=== PATIENT | female | born 1950 | race Caucasian/White ===

== ENCOUNTER 2021-12-11 08:22 | Outpatient (CLI) | payer MEDICARE, BC, SELFPAY | END 2021-12-11 08:23 | disposition home or self-care (01) | LOC: INJ CL 08:23 | PROVIDERS: PCP Internal Medicine; Visit Provider Family Medicine | DX: M54.16 Radiculopathy, lumbar region (principal); M51.36 Other intervertebral disc degeneration, lumbar region | CPT/HCPCS: 62323; J0702; Q9966 ==

== ENCOUNTER 2022-02-01 09:28 | Outpatient (CLI) | payer MEDICARE, BC, SELFPAY ==
[2022-02-01 12:46] LABS: TSH With Reflex to FT4* 0.387 uIU/mL (0.270-4.200)
[2022-02-01 12:54] LABS: Albumin* 4.2 g/dL (3.3-5.0); Chloride* 102 mmol/L (96-114)
[2022-02-01 12:55] LABS: Potassium* 4.5 mmol/L (3.6-5.1); Sodium* 136 mmol/L (135-149)
[2022-02-01 12:57] LABS: Aspartate Amino Transferase* 40 U/L (12-35); Bilirubin Total* 0.5 mg/dL (0.1-1.5); Blood Urea Nitrogen* 20 mg/dL (7-30); Carbon Dioxide* 28 mmol/L (20-32); Cholesterol* 155 mg/dL (90-199); Creatinine* 0.7 mg/dL (0.5-1.5); Estimated Glomerular Filt Rate 93 ml/min; Glucose* 99 mg/dL (60-115); Total Protein* 6.7 g/dL (6.0-8.3)
[2022-02-01 12:58] LABS: Alanine Aminotransferase* 27 U/L (4-35); Alkaline Phosphatase* 89 U/L (40-150); Calcium* 9.3 mg/dL (8.4-10.6); HDL Cholesterol* 78 mg/dL (>=50); LDL Cholesterol Calculated 65 mg/dL (<100); Triglycerides* 57 mg/dL (40-149)
== END 2022-02-01 09:29 | disposition home or self-care (01) ==
LOC: NFLDREF 09:28
PROVIDERS: PCP Internal Medicine; Visit Provider Internal Medicine
DX: E03.9 Hypothyroidism, unspecified (principal); E78.5 Hyperlipidemia, unspecified; M32.9 Systemic lupus erythematosus, unspecified
CPT/HCPCS: 80053; 80061; 84443

== ENCOUNTER 2022-07-16 09:26 | Outpatient (CLI) | payer MEDICARE, BC, SELFPAY | END 2022-07-16 09:27 | disposition home or self-care (01) | LOC: INJ CL 09:27 | PROVIDERS: PCP Internal Medicine; Visit Provider Family Medicine | DX: M54.16 Radiculopathy, lumbar region (principal); M51.36 Other intervertebral disc degeneration, lumbar region | CPT/HCPCS: 62323; J0702 ==

== ENCOUNTER 2022-07-25 17:45 | Outpatient (CLI) | payer MEDICARE, BC, SELFPAY | END 2022-07-25 17:46 | disposition home or self-care (01) | LOC: NFLDREF 07-29 03:44 | PROVIDERS: PCP Internal Medicine; Referring Provider Internal Medicine; Visit Provider Student in an Organized Health Care Education/Training Program | DX: R30.0 Dysuria (principal); N39.0 Urinary tract infection, site not specified | CPT/HCPCS: 87086; 87186 ==

== ENCOUNTER 2022-10-08 15:32 | Outpatient (CLI) | payer MEDICARE, BC, SELFPAY ==
--- NOTE | 2022-10-08 15:40 | CRLHL7_ITS ---
For Patients: As a result of the Cures Act, medical imaging exams and procedure reports are released immediately into your electronic medical record. You may view this report before your referring provider. If you have questions, please contact your health care provider. BILATERAL SCREENING MAMMOGRAM WITH COMPUTER-AIDED DETECTION AND TOMOSYNTHESIS TECHNIQUE: CC and MLO views were obtained. These mammographic images have been obtained using full-field digital technique. These mammographic images were interpreted with the benefit of computer-aided detection. Breast tomosynthesis was used in this interpretation. COMPARISON FILM: 08/31/21, 07/28/20, 07/03/18. FINDINGS: The breasts are heterogeneously dense, which may obscure small masses. IMPRESSION: There is no radiographic evidence for malignancy. ASSESSMENT: BI-RADS Category 1: Negative RECOMMENDATION: Routine screening mammogram in 1 year. A lay language report of this examination will be provided to the patient. JAVIER MATTA M.D. Diagnostic/Nuclear Medicine Radiologist [email or web address] MATILDA:[email or web address] Transcribed: 10/09/2022, 6:[address]/Dictated by: Javier Matta MD @ 10/09/2022 8:41:00 AM (Electronically Signed)
== END 2022-10-08 15:33 | disposition home or self-care (01) ==
LOC: MAMMO 15:33
PROVIDERS: PCP Internal Medicine; Visit Provider Internal Medicine
DX: Z12.31 Encounter for screening mammogram for malignant neoplasm of breast (principal); R92.2 Inconclusive mammogram
CPT/HCPCS: 77063; 77067

== ENCOUNTER 2023-02-17 09:31 | Outpatient (CLI) | payer MEDICARE, BC, SELFPAY | END 2023-02-17 09:32 | disposition home or self-care (01) | PROVIDERS: PCP Internal Medicine; Referring Provider Internal Medicine; Visit Provider Internal Medicine | DX: E03.9 Hypothyroidism, unspecified (principal); E78.5 Hyperlipidemia, unspecified | CPT/HCPCS: 80053; 80061; 84443 ==

== ENCOUNTER 2023-09-12 09:29 | Outpatient (CLI) | payer MEDICARE, BC, SELFPAY ==
--- OUTSIDE RECORDS SUMMARY | 2023-09-12 09:31 | XMS_ITS | Encounter Summary ---
Author Organization [facility] Address [address] [facility] [address] Care Team Providers Care Lobby Porter Name Role Phone [facility] Unavaila ble No Ref-Primary, Physician Primary Care Provider Ronaldo Trotter MD Unavailable [phone] Niesha Negron DO Unavailable [phone] Encounter Details Date Type Department Care Team (Late st Contact Info) Description 09/28/2018 [facility] Medical Advice [address] [phone] Margie Chery High risk HPV infection Social History Tobacco Use Types Packs/Day Years Used Date Smoking Tobacco: Never Smokeless Tobacco: Never Alcohol Use Standard Drinks/Week Comments Yes 0 (1 standard drink = 0.6 oz pur e alcohol) socially wine PHQ-2 Answer Date Recorded PHQ-2 Score 0 03/31/2018 Sex and Gender Information Value Date Recorded Sex Assigned at Not on file Gender Identity Not on file Sexual Orientation Not on file documented as of this encounter Plan of Treatment Upcoming Encounters Date Type Department Care Team (Late st Contact Info) Description 09/22/2023 10:30 AM CDT Office Visit [facility] [address] [place] [phone] Neisha Negron DO [address] [place] [address] documented as of this encounter Visit Diagnoses Diagnosis High risk HPV infection Human papillomavirus in conditions classified elsewhere and of unspecified site documented in this encounter Care Teams Lobby Porter Relationship Specialty Start Date End Date No Ref-Primary, Physician PCP - General 07/28/[address] [address] PCP 08/09/16 Ronaldo Trotter MD [address] [place] [address] Assigned Rheumatology Provider 01/14/20 10/28/20 [place] [address] [place], [place] [id number] Assigned OBGYN Provider 01/14/20 documented as of this encounter
--- OUTSIDE RECORDS SUMMARY | 2023-09-12 09:31 | XMS_ITS | Encounter Summary ---
Author Organization [facility] Address [address] [place] [address]. [place] [address] Care Team Providers Care Exhaust Equipment Operator Name Role Phone Shaniqua Nguyễn MD Primary Care Provider [phone] [facility] Unavaila ble [facility] Primary Care Provider No Ref-Primary, Physician Primary Care Provider Ronaldo Trotter MD Unavailable [phone] Niesha Negron DO Unavailable [phone] Reason for Visit * Reason Onset Date Comments Abstract 07/13/2016 Mammogram Encounter Details Date Type Department Care Team (Late st Contact Info) Description 07/13/2016 Telephone [facility] [address] [place] [phone] [place]iqua Nguy[place] [address] [place] [address] Abstract (Mammogram) Social History Tobacco Use Types Packs/Day Years Used Date Smoking Tobacco: Never Smokeless Tobacco: Never Alcohol Use Standard Drinks/Week Comments Yes 0 (1 standard drink = 0.6 oz pur e alcohol) socially wine Sex and Gender Information Value Date Recorded Sex Assigned at Not on file Gender Identity Not on file Sexual Orientation Not on file documented as of this encounter Miscellaneous Notes * Telephone Encounter - Sylvia Teran - 07/13/2016 3:29 PM CDT Please abstract the following data from this visit with this patient into the appropriate field in Epic: Colonoscopy done on this date: 01/2016 (approximately), by this group: [facility], resultswere normal. Outreach Electron Tube Assembler, Sylvia Teran documented in this encounter Plan of Treatment Upcoming Encounters Date Type Department Care Team (Late st Contact Info) Description 09/22/2023 10:30 AM CDT Office Visit [facility] [address] [place] [phone] Niesha Negron DO [address] [place] [address] documented as of this encounter Visit Diagnoses Not on filedocumented in this encounter Care Teams Exhaust Equipment Operator Relationship Specialty Start Date End Date Shaniqua Nguy[place] [address] [place] [address] PCP - General Internal Medicine 06/10/14 02/26/17 [facility] [address] [place] [address] PCP - General 02/27/17 07/27/17 No Ref-Primary, Physician PCP - General 07/28/17 [facility] [address] [place] [address] PCP 08/09/16 Ronaldo Trotter MD [address] [place] [address] Assigned Rheumatology Provider 01/14/20 10/28/20 [place] [address] [place] [address] Assigned OBGYN Provider 01/14/20 documented as of this encounter
--- OUTSIDE RECORDS SUMMARY | 2023-09-12 09:31 | XMS_ITS | Encounter Summary ---
Author Organization [facility] Address [address] [place] [address] Care Team Providers Care Regional Safety Manager Name Role Phone [facility], [facility] Medical Unavaila ble No Ref-Primary, Physician Primary Care Provider Ronaldo Trotter MD Unavailable [phone] Niesha Negron Elle DO Unavailable [phone] Encounter Details Date Type Department Care Team (Late st Contact Info) Description 04/17/2019 [facility] [address] [phone] Ronaldo Trotter MD [address] [place] [address] Social History Tobacco Use Types Packs/Day Years [...] encounter Miscellaneous Notes * Telephone Encounter - Ronaldo Trotter MD - 04/21/2019 9:19 AM CST She is not on any medications requiring lab monitoring and it has been a long time since I have seen her so let us wait until after we review her situation and decide if she needs any specific labs. TERY WORKERS SUPERVISOR documented in this encounter Plan of Treatment Upcoming Encounters Date Type Department Care Team (Late st Contact Info) Description 09/22/2023 10:30 AM CDT Office Visit [facility] [address] [place] [phone] Niesha Negron DO [address] [place] [address] documented as of this encounter Visit Diagnoses Not on filedocumented in this encounter Care Teams Regional Safety Manager Relationship Specialty Start Date End Date No Ref-Primary, Physician PCP - General 07/28/17 [facility], [address] [address] PCP 08/09/16 Ronaldo Trotter MD [address] [place] [address] Assigned Rheumatology Provider 01/14/20 10/28/20 [place] [address] [place] [address] Assigned OBGYN Provider 01/14/20 documented as of this encounter
--- OUTSIDE RECORDS SUMMARY | 2023-09-12 09:31 | XMS_ITS | Referral Summary ---
Author Organization [facility] Address [address] [place] [address] Care Team Providers Care Tool Maintenance Technician Name Role Phone [facility], [facility] Unavaila ble No Ref-Primary, Physician Primary Care Provider Allergies Active Allergy Reactions Criticality Noted Date Comments Erythromycin Nausea and Vomiting 03/12/2012 Contrast Dye Shortness Of Breath High 03/12/2012 Procaine Anxiety,Palpitations ,Difficulty breathing Low 07/05/2014 Sulfa Antibiotics Swelling 03/12/2012 Medications Medication Sig Dispensed Refills Start Date End Date Status Multiple Vitamins-Minerals (MULTI VITAMIN/MINERALS PO)Indications:Chest tightness,Fatigue,Con nective tissue disease (H24) Take 1 tablet by mouth daily. Active [place]-3 Fatty Acids (OMEGA-3 FISH OIL PO)Indications:Chest tightness,Fatigue,Con nective tissue disease (H24) Take 1 tablet by mouth daily 1200 daily Active IBUPROFENIndications: Chest tightness,Fatigue,Con nective tissue disease (H24) 1-2 tablets as needed Active cyclobenzaprine (FLEXERIL) 10 MG tabletIndications:Yesenia st tightness,Fatigue,Con nective tissue disease (H24) Take 0.5 tablets by mouth 3 times daily as needed. Active Naproxen Sodium (ALEVE PO) Take by mouth At Bedtime Active levothyroxine (SYNTHROID) 100 MCG tabletIndications:Hyp othyroidism, unspecified hypothyroidism type Take 1 tablet (100 mcg) by mouth daily Pt needs a lab done now. Please inform the pt 30 tablet 0 01/31/2015 Active diclofenac (VOLTAREN) 1 % GEL topical gelIndications:Connec tive tissue disease (H24),Osteoarthritis of carpometacarpal (CMC) joint of both thumbs Apply 4 grams to knees or 2 grams to hands four times daily using enclosed dosing card. 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 Co-test 12 months 12/25/15: NIL pap, + HR HPV 16. Plan [place]. 04/03/16: BX: normal, ECC: Neg. Plan cotest in 1 year per provider. 05/15/17 NIL pap, + HR HPV type 16. Plan colp due by 08/12/17 06/30/17 [place]- DEB 1 and high grade lesion on ECC. Plan LEEP 09/18/17 LEEP - DEB 1 and 2. Plan repeat pap at 6 and 12 months. 04/13/18: NIL pap, Neg HR HPV result. Plan repeat pap in 6 months. 12/28/18 NIL Pap, Neg HPV. Plan cotest in 1 year. 03/06/20 NIL, Neg HPV. Plan 1 yr co-test 03/05/21 NIL pap, Neg HPV. Plan cotest in 3 years. *After excision or ablation for DEB 2+, patient needs a cotest in 6 months, then cotesting annually X 3, then a cotest every 3 years for at least 25 years.* (2019 ASCCP guideline). Allergic rhinitis due to pollen 11/04/2013 Raynaud's syndrome 04/27/2013 Sicca syndrome (H24) 05/19/2012 Sinusitis 05/19/2012 Immunizations Name Administration Dates Next Due Flu, Unspecified 12/20/2008,01/29/2008 Influenza (H1N1) 02/20/2009 Influenza (High Dose) 3 emilia nt vaccine 02/12/2017 Influenza (IIV3) PF 12/24/2012, 3,12/23/2011,2010,01/07/2010 Pneumo Conj 13-V (2010&after) 03/05/2018 TDAP Vaccine (Adacel) 06/06/2014 Zoster vaccine, live 08/18/2011 Social History Tobacco Use Types Packs/Day Years Used Date Smoking Tobacco: Never Smokeless Tobacco: Never Alcohol Use Standard Drinks/Week Comments Yes 0 (1 standard drink = 0.6 oz pur e alcohol) socially wine PHQ-2 Answer Date Recorded PHQ-2 Score 0 03/06/2020 Adolescent Education Answer Date Record ed Getting School Help Needed Not on file 12/15 Sex and Gender Information Value Date Recorded Sex Assigned at Not on file Gender Identity Not on file Sexual Orientation Not on file Last Filed Vital Signs Vital Sign Reading Time Taken Comments Blood Pressure 130/82 03/05/2021 3:17 PM RN RELIEF CHARGE Pulse 80 04/29/2019 8:26 AM RN RELIEF CHARGE Temperature 36.8 ??C (98.2 ??F) 01/20/2018 2:57 PM CD T Respiratory Rate 17 04/29/2019 8:26 AM RN RELIEF CHARGE Oxygen Saturation 99% 04/29/2019 8:26 AM RN RELIEF CHARGE RA Inhaled Oxygen Concentration - - Weight 57.4 kg (126 lb 8 oz) 03/05/2021 3:17 PM RN RELIEF CHARGE Height 160 cm (5' 3) 03/05/2021 3:17 PM RN RELIEF CHARGE Body Mass Index 22.41 03/05/2021 3:17 PM RN RELIEF CHARGE Plan of Treatment Upcoming Encounters Date Type Department Care Team (Late st Contact Info) Description 09/22/2023 10:30 AM CDT Office Visit [facility] [place] [address] [place] [address] Niesha Negron, DO [address] [facility] [address] [place] [address] Procedures Procedure Name Priority Date/Time Associated Diagnosis Comments HPV HIGH RISK TYPES DNA CERVICAL Routine 03/05/2021 4:10 PM RN RELIEF CHARGE Cervical high risk HPV (human papillomavirus) test positive Moderate dysplasia of cervix (DEB II) Encounter for gynecological examination (general) (routine) without abnormal findings GYNECOLOGIC CYTOLOGY Routine 03/05/2021 4:10 PM RN RELIEF CHARGE Cervical high risk HPV (human papillomavirus) test positive Moderate dysplasia of cervix (DEB II) Encounter for gynecological examination (general) (routine) without abnormal findings TSH Routine 02/23/2017 2:17 PM RN RELIEF CHARGE Acute sinusitis with symptoms > 10 days Fatigue, unspecified type COMPREHENSIVE METABOLIC PANEL Routine 03/01/2016 10:19 AM RN RELIEF CHARGE Routine general medical examination at a health care facility LIPID REFLEX TO DIRECT LDL PANEL Routine 03/01/2016 10:19 AM RN RELIEF CHARGE Routine general medical examination at a health care facility COLONOSCOPY Routine 07/08/2014 10:44 AM CDT MAMMOGRAM - HIM SCAN 10/08/2013 12:00 AM CDT from Last 3 Months or Most Recently Relevant to Health Maintenance Results * Pap diagnostic with HPV (03/05/2021 4:10 PM RN RELIEF CHARGE) Interpretation Negative for Intraepithelial Lesion or Malignancy (NILM) 03/12/2021 10:37 AM RN RELIEF CHARGE [facility] Comment Papanicolaou Test Limitations: Cervical cytology is a screening test with limited sensitivity, and regular screening is critical for cancer prevention. Pap tests are primarily effective for the diagnosis/prevent ion of squamous cell carcinoma, not adenocarcinoma or other cancers. 03/12/2021 10:37 AM RN RELIEF CHARGE [facility] Specimen Adequacy Satisfactory for evaluation, endocerv/transfor mation zone component absent, atrophy 03/12/2021 10:37 AM RN RELIEF CHARGE [facility] Clinical Information post-menopausal 03/12/2021 10:37 AM RN RELIEF CHARGE [facility] Reflex Testing Yes regardless of result 03/12/2021 10:37 AM RN RELIEF CHARGE [facility] Previous Abnormal? Yes 03/12/2021 10:37 AM RN RELIEF CHARGE [facility] Previous Abnormal Diagnosis DEB 1 and HPV 03/12/2021 10:37 AM RN RELIEF CHARGE [facility] Performing Labs The technical component of this testing was completed at [facility] 03/12/2021 10:37 AM RN RELIEF CHARGE [facility] Brushing CERVIX UTERI STRUCTURE / Unknown 03/05/2021 4:10 PM RN RELIEF CHARGE 03/05/2021 4:15 PM RN RELIEF CHARGE Niesha Negron DO LAB - [facility] [address] [place] [address], [facility] [phone] * HPV High Risk Types DNA Cervical (03/05/2021 4:10 PM RN RELIEF CHARGE) Other HR HPV Negative Negative 03/13/2021 3:14 PM RN RELIEF CHARGE [facility] HPV16 DNA Negative Negative 03/13/2021 3:14 PM RN RELIEF CHARGE [facility] HPV18 DNA Negative Negative 03/13/2021 3:14 PM RN RELIEF CHARGE [facility] FINAL DIAGNOSIS This patient's sample is negative for HPV DNA. This test was developed and its performance characteristics determined by the [facility], [facility]. It has not been cleared or approved by the FDA. The laboratory is regulated under CLIA as qualified to perform high-complexity testing. This test is used for clinical purposes. It should not be regarded as investigational or for research. METHODOLOGY: The Marco [employer] Belen 4800 system uses automated extraction, simultaneous amplification of HPV (L1 region) and beta-globin, followed by real time detection of fluorescent labeled HPV and beta globin using specific oligonucleotide probes. The test specifically identified types HPV 16 DNA and HPV 18 DNA while concurrently detecting the rest of the high risk types (31, 33, 35, 39, 45, 51, 52, 56, 58, 59, 66 or 68). COMMENTS: This test is not intended for use as a screening device for woman under age 30 with normal cervical cytology. Results should be correlated with cytologic and histologic findings. Close clinical followup is recommended. 03/13/2021 3:14 PM RN RELIEF CHARGE [facility] Brushing CERVIX UTERI STRUCTURE / Unknown Non-blood Collection / Unknown 03/05/2021 4:10 PM RN RELIEF CHARGE 03/13/2021 8:35 AM RN RELIEF CHARGE Niesha Negron DO LAB - BLOOD ORDER SNOW [facility] [address] [facility] [place] [address], [facility] [phone] * (ABNORMAL) TSH (02/23/2017 2:17 PM RN RELIEF CHARGE) TSH 0.38(L) 0.40 - 4.00 mU/L 02/24/2017 3:21 PM RN RELIEF CHARGE [facility] Blood specimen (specimen) 02/23/2017 2:17 PM RN RELIEF CHARGE 02/23/2017 2:18 PM RN RELIEF CHARGE Angel Ordaz MD LAB - BLOOD ORDERABL ES Performing Organization Address City/[facility]/ZIP Co de Phone Number [facility] [address] [place] [address] * (ABNORMAL) Lipid Profile with reflex to direct LDL (03/01/2016 10:19 AM RN RELIEF CHARGE) Cholesterol 195 <200 mg/dL [facility] Triglycerides 62 <150 mg/dL [facility] HDL Cholesterol 78 >49 mg/dL [facility] LDL Cholesterol Calculated 105(H) <100 mg/dL [facility] Comment: Above desirable: ??100-129 mg/dl Borderline High: ??130-159 mg/dL High: ? 160-189 mg/dL Very high: ? >189 mg/dl Non HDL Cholesterol 117 <130 mg/dL [facility] Blood specimen (specimen) 03/01/2016 10:19 AM RN RELIEF CHARGE 03/01/2016 10:24 AM RN RELIEF CHARGE Niesha Negron DO LAB - BLOOD ORDER SNOW [facility] [address] [place] [address] * (ABNORMAL) Comprehensive metabolic panel (BMP + Alb, Alk Phos, ALT, AST, Total. Bili, TP) (03/01/2016 10:19 AM RN RELIEF CHARGE) Sodium 143 133 - 144 mmol/L [facility] Potassium 4.2 3.4 - 5.3 mmol/L [facility] Chloride 108 94 - 109 mmol/L [facility] Carbon Dioxide 26 20 - 32 mmol/L [facility] Anion Gap 9 3 - 14 mmol/L [facility] Glucose 100(H) 70 - 99 mg/dL [facility] Urea Nitrogen 17 7 - 30 mg/dL [facility] Creatinine 0.74 0.52 - 1.04 mg/dL [facility] GFR Estimate 79 >60 mL/min/1. 7m2 [facility] Comment:Non GFR Calc GFR Estimate If Black >90 GFR Calc >60 mL/min/1. 7m2 [facility] Calcium 9.1 8.5 - 10.1 mg/dL [facility] Bilirubin Total 0.4 0.2 - 1.3 mg/dL [facility] Albumin 3.8 3.4 - 5.0 g/dL [facility] Protein Total 7.1 6.8 - 8.8 g/dL [facility] Alkaline Phosphatase 72 40 - 150 U/L [facility] ALT 27 0 - 50 U/L [facility] AST 26 0 - 45 U/L [facility] Blood specimen (specimen) 03/01/2016 10:19 AM RN RELIEF CHARGE 03/01/2016 10:24 AM RN RELIEF CHARGE Niesha Negron DO LAB - BLOOD ORDER SNOW [facility] [address] [place] [address] * COLONOSCOPY (07/08/2014 10:44 AM CDT) COLONOSCOPY [facility] Patient Name: Yessy Mullen ?Procedure Date: 07/08/2014 10:44 AM ? Date of : 1950 ? Admit Type: Outpatient Age: 64 ? Gender: Female Attending MD: Deonte High MD ?Instrument Name: [id number] Procedure: ?Colonoscopy Indications: ?Screening for colorectal malignant neoplasm Providers: ?Deonte High MD, Sola Lopez RN (Nurse) Referring MD: ? Shaniqua Nguyễn MD Medicines: ?Midazolam 2 mg IV, Fentanyl 100 micrograms IV Complications: ?No immediate complications. Procedure: ?Pre-Anesthesia Assessment: ?- Prior to the procedure, a History and Physical ?was performed, and patient medications and ?allergies were reviewed. The patient is competent. ?The risks and benefits of the procedure and the ?sedation options and risks were discussed with the ?patient. All questions were answered and informed ?consent was obtained. Patient identification and ?proposed procedure were verified by the physician ?in the procedure room. Mental Status Examination: ?alert and oriented. Airway Examination: normal ?oropharyngeal airway and neck mobility. Respiratory ?Examination: clear to auscultation. CV Examination: ?normal. Prophylactic Antibiotics: The patient does ?not require prophylactic antibiotics. Prior ?Anticoagulants: The patient has taken no previous ?anticoagulant or antiplatelet agents. ASA Grade ?Assessment: II - A patient with mild systemic ?disease. After reviewing the risks and benefits, ?the patient was deemed in satisfactory condition to ?undergo the procedure. The anesthesia plan was to ?use moderate sedation / analgesia (conscious ?sedation). Immediately prior to administration of ?medications, the patient was re-assessed for ?adequacy to receive sedatives. The heart rate, ?respiratory rate, oxygen saturations, blood ?pressure, adequacy of pulmonary ventilation, and ?response to care were monitored throughout the ?procedure. The physical status of the patient was ?re-assessed after the procedure. ?After obtaining informed consent, the colonoscope ?was passed under direct vision. Throughout the ?procedure, the patient's blood pressure, pulse, and ?oxygen saturations were monitored continuously. The ?[id number] was introduced through the anus ?and advanced to the cecum, identified by ?appendiceal orifice and ileocecal valve. The ?colonoscopy was performed without difficulty. The ?patient tolerated the procedure well. The quality ?of the bowel preparation was good. ? Findings: ? The perianal and digital rectal examinations were normal. ? The entire examined colon appeared normal on direct and retroflexion ? views. ? Impression: ? - The entire examined colon is normal on direct and ?retroflexion views. Recommendation: ? - Repeat colonoscopy in 10 years for screening ?purposes. ? Procedure Code(s): ? --- Professional --- ? G0121, Colorectal cancer screening; colonoscopy on individual not ? meeting criteria for high risk Diagnosis Code(s): ? --- Professional --- ? V76.51, Special screening for malignant neoplasms of colon CPT copyright 2013 [employer]. All rights reserved. The codes documented in this report are preliminary and upon hand woven carpet and rug mender review may be revised to meet current compliance requirements. Electronically signed by Deonte High MD __ Deonte High MD 07/08/2014 11:11 AM I was physically present for the entire viewing portion of the exam. Number of Addenda: 0 Note Initiated On: 07/08/2014 10:44 AM MRN: ?[id number] Procedure Date: ? 07/08/2014 10:44:48 AM Scope Withdrawal Time: 0 hours 6 minutes 43 seconds Total Procedure Duration: 0 hours 13 minutes 14 seconds Scope In: 10:50:12 AM Scope Out: 11:03:26 AM RADIOLOGY RESULTS 07/08/2014 10:4 4 AM CDT Shaniqua Nguyễn MD PROCEDURES RADIOLOGY RESULTS * MAMMOGRAM - HIM SCAN (10/08/2013 12:00 AM CDT) Anatomical Region Laterality Modality Other 10/08/2013 Provider Outside IMG MAMMOGRAPHY ORDE RABASNUCION from Last 3 Months or Most Recently Relevant to Health Maintenance Care Teams Tool Maintenance Technician Relationship Specialty Start Date End Date No Ref-Primary, Physician PCP - General 07/28/17 [facility], [address] [address] PCP 08/09/16
--- OUTSIDE RECORDS SUMMARY | 2023-09-12 09:31 | XMS_ITS | Encounter Summary ---
Author Organization [facility] Address [address] [place] [address] Care Team Providers Care Chef Manager Name Role Phone [facility], [facility], [facility] Primary Care Provider No Ref-Primary, Physician Primary Care Provider Ronaldo Trotter MD Unavailable [phone] Niesha Negron DO Unavailable [phone] Encounter Details Date Type Department Care Team (Late st Contact Info) Description 03/24/2017 [facility] Medical Advice [address] [address] [facility] Social History Tobacco Use Types Packs/Day Years [...] Description 09/22/2023 10:30 AM CDT Office Visit [facility] [address] [place] [phone] Niesha Negron DO [address] [place] [address] documented as of this encounter Visit Diagnoses Not on filedocumented in this encounter Care Teams Chef Manager Relationship Specialty Start Date End Date [address] [address] PCP - General 02/27/17 07/27/17 No Ref-Primary, Physician PCP - General 07/28/17 [facility], [facility] [address] [place] [address] PCP 08/09/16 Ronaldo Trotter MD [address] [place] [address] Assigned Rheumatology Provider 01/14/20 10/28/20 [place] [address] [place] [address] Assigned OBGYN Provider 01/14/20 documented as of this encounter
--- OUTSIDE RECORDS SUMMARY | 2023-09-12 09:31 | XMS_ITS | Encounter Summary ---
Author Organization [facility] Address [address] [place] [address] Care Team Providers Care Storm Sash Maker Name Role Phone Shaniqua Nguyễn MD Primary Care Provider [phone] [facility], [facility], [facility] Primary Care Provider No Ref-Primary, Physician Primary Care Provider Ronaldo Trotter MD Unavailable [phone] Niesha Negron DO Unavailable [phone] Encounter Details Date Type Department Care Team (Late Contact Info) Description 04/08/2016 [facility] [address] [address] Bonita Case, PRINTING PRESS OPERATOR APPRENTICE DIRECTOR [employer] [address] [place] [address] [address] [place] [address] Social History Tobacco Use Types Packs/Day Years [...] Description 09/22/2023 10:30 AM CDT Office Visit [facility] [address] [place] [address] Niesha Negron DO [address] [place] [address] documented as of this encounter Visit Diagnoses Not on filedocumented in this encounter Care Teams Storm Sash Maker Relationship Specialty Start Date End Date Shaniqua Nguy[place] [address] [facility] [address] PCP - General Internal Medicine 06/10/14 02/26/[address] [address] PCP - General 02/27/17 07/27/17 No Ref-Primary, Physician PCP - General 07/28/17 [facility] [address] [place] [address] PCP 08/09/16 Ronaldo Trotter MD [address] [place] [address] Assigned Rheumatology Provider 01/14/20 10/28/20 [place] [address] [place] [address] Assigned OBGYN Provider 01/14/20 documented as of this encounter
--- OUTSIDE RECORDS SUMMARY | 2023-09-12 09:31 | XMS_ITS | Clinical Summary ---
Author Organization [place] Address [address] [place] [address] Care Team Providers Care Tire Balancer Name Role Phone [facility], [facility] Unavaila ble No Ref-Primary, Physician Primary Care [...] Take 1 tablet by mouth daily. Active [place]-3 Fatty Acids (OMEGA-3 FISH OIL PO)Indications:Chest tightness,Fatigue,Con [...] Overview: 06/06/14 NIL pap, +HPV 16 08/11/14 [place]= DEB 1 Pap= NIL. Co-test 12 months 12/25/15: NIL pap, + HR HPV 16. Plan [place]. 04/03/16: BX: normal, ECC: Neg. Plan cotest in 1 year per provider. 05/15/17 NIL pap, + HR HPV type 16. Plan colp due by 08/12/17 06/30/17 [place]- DEB 1 and high grade lesion on [...] Vaccine (Adacel) 06/06/2014 Zoster vaccine, live 08/18/2011 Family History Medical History Relation Comments Diabetes Maternal Uncle 1 Diabetes Maternal Uncle 2 Hypertension Maternal Uncle 3 Hyperlipidemia Maternal Uncle 4 Relation Status Comments Maternal Uncle 1 Maternal Uncle 2 Maternal Uncle 3 Maternal Uncle 4 Social History Tobacco Use Types Packs/Day Years [...] Comments Blood Pressure 130/82 03/05/2021 3:17 PM NEEDLEWORKER Pulse 80 04/29/2019 8:26 AM NEEDLEWORKER Temperature 36.8 ??C (98.2 ??F) 01/20/2018 2:57 PM CD T Respiratory Rate 17 04/29/2019 8:26 AM NEEDLEWORKER Oxygen Saturation 99% 04/29/2019 8:26 AM NEEDLEWORKER RA Inhaled Oxygen Concentration - - Weight 57.4 kg (126 lb 8 oz) 03/05/2021 3:17 PM NEEDLEWORKER Height 160 cm (5' 3) 03/05/2021 3:17 PM NEEDLEWORKER Body Mass Index 22.41 03/05/2021 3:17 PM NEEDLEWORKER Plan of Treatment Upcoming Encounters Date Type Department Care Team (Late st Contact Info) Description 09/22/2023 10:30 AM CDT Office Visit [facility] [address] [place] [phone] Niesha Negron, DO [address] [place] [address] Health Maintenance Due Date Last Done Comments ADVANCE CARE PLANNING 1950 ANNUAL REVIEW OF HM ORDERS [address] CT COLONOGRAPHY 1950 DEXA 1950 FIT 1950 FLEX SIG 1950 sDNA (Cologuard) 1950 HEPATITIS C SCREENING 1969 RSV VACCINE ( & 60+) (1 - 1-dose 60+ series) 2011 MAMMO SCREENING 10/09/2015 10/08/2013, 08/28/2012 FALL RISK ASSESSMENT 02/15/2016 LIPID 03/01/2017 03/01/2016, 06/06/2014 EYE EXAM 12/28/2017 12/28/2016, 11/22, 06/11/2012 TSH W/FREE T4 REFLEX 02/23/2018 02/23/2017, 08/11/2016, 03/01/2016, Additional history exists GLUCOSE 03/01/2019 03/01/2016, 06/06/2014 MEDICARE ANNUAL WELLNESS VISIT 03/05/2022 03/05/2021, 03/06/2020, 12/25/2015, Additional history exists COVID-19 Vaccine ( season) 2022 04/05/2022, 02/20/2021, 05/18/2020, Additional history exists PHQ-2 (once per calendar year) 2023 03/06/2020, 04/29/2019, 04/29/2019, Additional history exists HPV FOLLOW-UP 03/05/2024 03/05/2021, 02/21, 12/28/2018, Additional history exists PAP FOLLOW-UP 03/05/2024 03/05/2021, 02/21, 12/28/2018, Additional history exists COLONOSCOPY 07/08/2024 07/08/2014, 07/08/2014 COLORECTAL CANCER SCREENING 07/08/2024 DTAP/TDAP/TD IMMUNIZATION (3 - Td or Tdap) 09/17/2025 09/18/2015, 06/06/2014, 09/05/2004 Pneumococcal Vaccine: 65+ Years Completed 02/07/2022, 03/05/2018, 07/09/2008 INFLUENZA VACCINE Completed 12/29/2022, , 01/08/2021, Additional history exists ZOSTER IMMUNIZATION Completed 04/26/2023, 05/24/2022, 08/18/2011 HPV IMMUNIZATION Aged Out No longer e ligible based on patient's age to complete this topic IPV IMMUNIZATION Aged Out No longer e ligible based on patient's age to complete this topic MENINGITIS IMMUNIZATION Aged Out No l onger eligible based on patient's age to complete this topic RSV MONOCLONAL ANTIBODY Aged Out No l onger eligible based on patient's age to complete this topic Procedures Procedure Name Priority Date/Time Associated Diagnosis Comments HPV HIGH RISK TYPES DNA CERVICAL Routine 03/05/2021 4:10 PM NEEDLEWORKER Cervical high risk HPV (human papillomavirus) test positive Moderate dysplasia of cervix (DEB II) Encounter for gynecological examination (general) (routine) without abnormal findings GYNECOLOGIC CYTOLOGY Routine 03/05/2021 4:10 PM NEEDLEWORKER Cervical high risk HPV (human papillomavirus) test positive Moderate dysplasia of cervix (DEB II) Encounter for gynecological examination (general) (routine) without abnormal findings TSH Routine 02/23/2017 2:17 PM NEEDLEWORKER Acute sinusitis with symptoms > 10 days Fatigue, unspecified type COMPREHENSIVE METABOLIC PANEL Routine 03/01/2016 10:19 AM NEEDLEWORKER Routine general medical examination at a health care facility LIPID REFLEX TO DIRECT LDL PANEL Routine 03/01/2016 10:19 AM NEEDLEWORKER Routine general medical examination at a health care facility COLONOSCOPY Routine 07/08/2014 10:44 AM CDT MAMMOGRAM - HIM SCAN 10/08/2013 12:00 AM CDT from Last 3 Months or Most Recently Relevant to Health Maintenance Results * Pap diagnostic with HPV (03/05/2021 4:10 PM NEEDLEWORKER) Interpretation Negative for Intraepithelial Lesion or Malignancy (NILM) 03/12/2021 10:37 AM NEEDLEWORKER [facility] Comment Papanicolaou Test Limitations: Cervical cytology is a screening test with limited sensitivity, and regular screening is critical for cancer prevention. Pap tests are primarily effective for the diagnosis/prevent ion of squamous cell carcinoma, not adenocarcinoma or other cancers. 03/12/2021 10:37 AM NEEDLEWORKER [facility] Specimen Adequacy Satisfactory for evaluation, endocerv/transfor mation zone component absent, atrophy 03/12/2021 10:37 AM NEEDLEWORKER [facility] Clinical Information post-menopausal 03/12/2021 10:37 AM NEEDLEWORKER [facility] Reflex Testing Yes regardless of result 03/12/2021 10:37 AM NEEDLEWORKER [facility] Previous Abnormal? Yes 03/12/2021 10:37 AM NEEDLEWORKER [facility] Previous Abnormal Diagnosis DEB 1 and HPV 03/12/2021 10:37 AM NEEDLEWORKER [facility] Performing Labs The technical component of this testing was completed at [facility] 03/12/2021 10:37 AM NEEDLEWORKER [facility] Brushing CERVIX UTERI STRUCTURE / Unknown 03/05/2021 4:10 PM NEEDLEWORKER 03/05/2021 4:15 PM NEEDLEWORKER Niesha DELANEY - RICKEY PATEL Performing Organization Address City/State/[facility] Co de Phone Number [facility] [address] [place] [address], [facility] [phone] * HPV High Risk Types DNA Cervical (03/05/2021 4:10 PM NEEDLEWORKER) Other HR HPV Negative Negative 03/13/2021 3:14 PM NEEDLEWORKER [facility] HPV16 DNA Negative Negative 03/13/2021 3:14 PM NEEDLEWORKER [facility] HPV18 DNA Negative Negative 03/13/2021 3:14 PM NEEDLEWORKER [facility] FINAL DIAGNOSIS This patient's sample is negative for HPV DNA. This test was developed and its performance characteristics determined by the [facility], Molecular Diagnostics Laboratory. It has not been cleared or approved by the FDA. The laboratory is regulated under CLIA as qualified to perform high-complexity testing. This test is used for clinical purposes. It should not be regarded as investigational or for research. METHODOLOGY: The Marco A Belne 4800 system uses automated extraction, simultaneous amplification [...] clinical followup is recommended. 03/13/2021 3:14 PM NEEDLEWORKER [facility] Brushing CERVIX UTERI STRUCTURE / Unknown Non-blood Collection / Unknown 03/05/2021 4:10 PM NEEDLEWORKER 03/13/2021 8:35 AM NEEDLEWORKER Niesha Negron DO LAB - BLOOD ORDER SNOW [facility] Molecular Diagnostics Lab [address] [facility] [address] [place] [address], [facility] [phone] * (ABNORMAL) TSH (02/23/2017 2:17 PM NEEDLEWORKER) TSH 0.38(L) 0.40 - 4.00 mU/L 02/24/2017 3:21 PM NEEDLEWORKER [facility] Blood specimen (specimen) 02/23/2017 2:17 PM NEEDLEWORKER 02/23/2017 2:18 PM NEEDLEWORKER Angel Ordaz MD LAB - BLOOD ORDERABL ES [facility] [address] [place] [address] * (ABNORMAL) Lipid Profile with reflex to direct LDL (03/01/2016 10:19 AM NEEDLEWORKER) Cholesterol 195 <200 mg/dL [facility] Triglycerides 62 <150 mg/dL [facility] HDL Cholesterol 78 >49 mg/dL [facility] LDL Cholesterol Calculated 105(H) <100 mg/dL [facility] Comment: Above desirable: ??100-129 mg/dl Borderline High: ??130-159 mg/dL High: ? 160-189 mg/dL Very high: ? >189 mg/dl Non HDL Cholesterol 117 <130 mg/dL [facility] Blood specimen (specimen) 03/01/2016 10:19 AM NEEDLEWORKER 03/01/2016 10:24 AM NEEDLEWORKER Niesha Negron DO LAB - BLOOD ORDER SNOW Performing Organization Address City/State/[facility] Co de Phone Number [facility] [address] [place] [address] * (ABNORMAL) Comprehensive metabolic panel (BMP + Alb, Alk Phos, ALT, AST, Total. Bili, TP) (03/01/2016 10:19 AM NEEDLEWORKER) Sodium 143 133 - 144 mmol/L [facility] Potassium 4.2 3.4 - 5.3 mmol/L [facility] Chloride 108 94 - 109 mmol/L [facility] Carbon Dioxide 26 20 - 32 mmol/L [facility] Anion Gap 9 3 - 14 mmol/L [facility] Glucose 100(H) 70 - 99 mg/dL [facility] Urea Nitrogen 17 7 - 30 mg/dL [facility] Creatinine 0.74 0.52 - 1.04 mg/dL [facility] GFR Estimate 79 >60 mL/min/1. 7m2 [facility] Comment:Non GFR Calc GFR Estimate If Black >90 GFR Calc >60 mL/min/1. 7m2 [facility] Calcium 9.1 8.5 - 10.1 mg/dL [facility] Bilirubin Total 0.4 0.2 - 1.3 mg/dL [facility] Albumin 3.8 3.4 - 5.0 g/dL [facility] Protein Total 7.1 6.8 - 8.8 g/dL [facility] Alkaline Phosphatase 72 40 - 150 U/L [facility] ALT 27 0 - 50 U/L [facility] AST 26 0 - 45 U/L [facility] Blood specimen (specimen) 03/01/2016 10:19 AM NEEDLEWORKER 03/01/2016 10:24 AM NEEDLEWORKER Niesha Negron DO LAB - BLOOD ORDER SNOW [facility] [address] [place] [address] * COLONOSCOPY (07/08/2014 10:44 AM CDT) COLONOSCOPY [facility] Patient Name: Yessy Mullen ?Procedure Date: 07/08/2014 [...] and ?oxygen saturations were monitored continuously. The ?[facility]-H190L [id number] was introduced through the anus ?and advanced [...] malignant neoplasms of colon CPT copyright 2013 [employer]. All rights reserved. The codes documented in this report are preliminary and upon product safety head review may be revised to meet current compliance requirements. Electronically signed by Deonte High MD __ Deonte High MD 07/08/2014 11:11 AM I was physically present for the entire viewing portion of the exam. Number of Addenda: 0 Note Initiated On: 07/08/2014 10:44 AM MRN: ?[id number] Procedure Date: ? 07/08/2014 10:44:48 AM Scope Withdrawal Time: 0 hours 6 minutes 43 seconds Total Procedure Duration: 0 hours 13 minutes 14 seconds Scope In: 10:50:12 AM Scope Out: 11:03:26 AM RADIOLOGY RESULTS 07/08/2014 10:4 4 AM CDT Shaniqua Nguyễn MD PROCEDURES RADIOLOGY RESULTS * MAMMOGRAM - HIM SCAN (10/08/2013 12:00 AM CDT) Anatomical Region Laterality Modality Other 10/08/2013 Provider Outside [facility] [place] from Last 3 Months or Most Recently Relevant to Health Maintenance Care Teams Tire Balancer Relationship Specialty Start Date End Date No Ref-Primary, Physician PCP - General 07/28/17 Clinic, [address] [address] PCP 08/09/16
--- OUTSIDE RECORDS SUMMARY | 2023-09-12 09:32 | XMS_ITS | Encounter Summary ---
Author Organization [place] Address [address] [place] [address] Care Team Providers Care Gate Operator Name Role Phone Liza Pratt DO Primary Care Provider +- [phone] Shaniqua Nguyễn MD Primary Care Provider [phone] [facility], [facility] Unavaila ble [facility] Primary Care Provider No Ref-Primary, Physician Primary Care Provider Ronaldo Trotter MD Unavailable [phone] Niesha Negron DO Unavailable [phone] Encounter Details Date Type Department Care Team (Late st Contact Info) Description 09/28/2013 MyC Medical Advice [facility] Adult Rheumatology 2nd Floor, Clinic [address] [phone] Ronaldo Trotter MD [address] [place] [address] Social History Tobacco Use Types Packs/Day Years Used Date Smoking Tobacco: Never Smokeless Tobacco: Never Alcohol Use Standard Drinks/Week Comments Yes 0 (1 standard drink = 0.6 oz pur e alcohol) Sex and Gender Information Value Date Recorded Sex Assigned at Not on file Gender Identity Not on file Sexual Orientation Not on file documented as of this encounter Plan of Treatment Upcoming Encounters Date Type Department Care Team (Late st Contact Info) Description 09/22/2023 10:30 AM CDT Office Visit [facility] [address] [place] [phone] Niesha Negron DO [address] [place] [address] documented as of this encounter Visit Diagnoses Not on filedocumented in this encounter Care Teams Gate Operator Relationship Specialty Start Date End Date Liza Pratt DO PCP - General 02/26/12 06/09/14 Shaniqua Nguy[place] [address] [place] [address] PCP - General Internal Medicine 06/10/14 02/26/17 [facility] [address] [place] [address] PCP - General 02/27/17 07/27/17 No Ref-Primary, Physician PCP - General 07/28/17 [facility] [address] [place] [address] PCP 08/09/16 Ronaldo Trotter MD [address] [place] [address] [id number] Assigned Rheumatology Provider 01/14/20 10/28/20 [place] [address] [place] [address] Assigned OBGYN Provider 01/14/20 documented as of this encounter
--- OUTSIDE RECORDS SUMMARY | 2023-09-12 09:32 | XMS_ITS | Encounter Summary ---
Author Organization [place] Address [address] [place] [address] Care Team Providers Care Process Control Programmer Name Role Phone Liza Pratt DO Primary Care Provider +- [phone] Shaniqua Nguyễn MD Primary Care Provider [phone] [facility], [facility] Unavaila ble [facility] Primary Care Provider No Ref-Primary, Physician Primary Care Provider Ronaldo Trotter MD Unavailable [phone] Niesha Negron DO Unavailable [phone] Encounter Details Date Type Department Care Team (Late st Contact Info) Description 08/05/2013 MyC Medical Advice [facility] Adult Rheumatology 2nd Floor, Clinic [address] [phone] Ronaldo Trotter MD [address] [place] [address] Social History Tobacco Use Types Packs/Day [...] encounter Miscellaneous Notes * Telephone Encounter - Roanldo Trotter MD - 08/09/2013 8:30 PM CDT Thanks Raghu. documented in this encounter Plan of Treatment Upcoming Encounters Date Type Department Care Team (Late st Contact Info) Description 09/22/2023 10:30 AM CDT Office Visit [facility] [address] [place] [phone] Niesha Negron DO [address] [place] [address] documented as of this encounter Visit Diagnoses Not on filedocumented in this encounter Care Teams Process Control Programmer Relationship Specialty Start Date End Date Liza Pratt DO PCP - General 02/26/12 06/09/14 Shaniqua Nguy[place] [address] [place] [address] PCP - General Internal Medicine 06/10/14 02/26/[address] [address] PCP - General 02/27/17 07/27/17 No Ref-Primary, Physician PCP - General 07/28/17 [facility] [address] [place] [address] PCP 08/09/16 Ronaldo Trotter MD [address] [place] [address] Assigned Rheumatology Provider 01/14/20 10/28/20 [place] [address] [place] [address] Assigned OBGYN Provider 01/14/20 documented as of this encounter
--- OUTSIDE RECORDS SUMMARY | 2023-09-12 09:32 | XMS_ITS | Encounter Summary ---
Author Organization [place] Address [address] [place] [address] Care Team Providers Care Information Systems Audit Manager Name Role Phone Shaniqua Nguyễn MD Primary Care Provider [phone] [facility], [facility], [facility] Primary Care Provider No Ref-Primary, Physician Primary Care Provider Ronaldo Trotter MD Unavailable [phone] Niesha Negron DO Unavailable [phone] Encounter Details Date Type Department Care Team (Late st Contact Info) Description 10/04/2015 [facility] [address] [address] Ronaldo Trotter MD [address] [place] [id number] Sicca syndrome (H) (Primary Dx); AA (alopecia areata); Other fatigue Social History Tobacco Use Types Packs/Day Years [...] Telephone Encounter - Ronaldo Trotter MD - 10/10/2015 11:37 AM CDT I have ordered some labs for her to get done. Please ask her how much prednisone she thinks it is taken in the past to get things under control, and/or whether a Medrol Dosepak has been adequate. Youcan then set either of those up for my signature. We would of course want to taper the prednisone off over 2 to 3 weeks documented in this encounter Plan of Treatment Upcoming Encounters Date Type Department Care Team (Late st Contact Info) Description 09/22/2023 10:30 AM CDT Office Visit [facility] [address] [place] [phone] Niesha Negron DO [address] [place], [place] [address] documented as of this encounter Results * Erythrocyte sedimentation rate auto (08/04/2016 1:23 PM CDT) Pathologist [facility] Sed Rate 11 0 - 30 mm/h [facility] Blood specimen (specimen) 08/04/2016 1:23 PM CDT 08/04/2016 1:24 PM CDT Ronaldo Trotter MD LAB - BLOOD ORDERABL ES [facility] [address] [place] [address] * CRP inflammation (08/04/2016 1:23 PM CDT) Pathologist [facility] CRP Inflammation <2.9 0.0 - 8.0 mg/L [facility] Blood specimen (specimen) 08/04/2016 1:23 PM CDT 08/04/2016 1:24 PM CDT Ronaldo Trotter MD LAB - BLOOD ORDERABL ES Performing Organization Address City/[facility]/ZIP Co de Phone Number [facility] [address] [place] [address] * Complement C3 (08/04/2016 1:23 PM CDT) Pathologist [facility] Complement C3 114 76 - 169 mg/dL [facility] Blood specimen (specimen) 08/04/2016 1:23 PM CDT 08/04/2016 1:24 PM CDT Ronaldo Trotter MD LAB - BLOOD ORDERABL ES Performing Organization Address [facility] Co de Phone Number [facility] [address] [place] [address] * CBC with platelets differential (08/04/2016 1:23 PM CDT) [facility] WBC 4.7 4.0 - 11.0 10e9/L [facility] RBC Count 3.94 3.8 - 5.2 10e12/L [facility] Hemoglobin 12.5 11.7 - 15.7 g/dL [facility] Hematocrit 37.0 35.0 - 47.0 % [facility] MCV 94 78 - 100 fl [facility] MCH 31.7 26.5 - 33.0 pg [facility] MCHC 33.8 31.5 - 36.5 g/dL [facility] RDW 12.2 10.0 - 15.0 % [facility] Platelet Count 230 150 - 450 10e9/L [facility] Diff Method Automated Method [facility] % Neutrophils 43.5 % [facility] % Lymphocytes 40.8 % [facility] % Monocytes 13.4 % [facility] % Eosinophils 2.1 % [facility] % Basophils 0.2 % [facility] Absolute Neutrophil 2.1 1.6 - 8.3 10e9/L [facility] Absolute Lymphocytes 1.9 0.8 - 5.3 10e9/L [facility] Absolute Monocytes 0.6 0.0 - 1.3 10e9/L [facility] Absolute Eosinophils 0.1 0.0 - 0.7 10e9/L [facility] Absolute Basophils 0.0 0.0 - 0.2 10e9/L [facility] Blood specimen (specimen) 08/04/2016 1:23 PM CDT 08/04/2016 1:24 PM CDT Ronaldo Trotter MD LAB - BLOOD ORDERABL ES [facility] [address] [place] [address] documented in this encounter Visit Diagnoses Diagnosis Sicca syndrome (H24)- Primary Sicca syndrome AA (alopecia areata) Alopecia areata Other fatigue documented in this encounter Care Teams Information Systems Audit Manager Relationship Specialty Start Date End Date Shaniqua Nguy[place] [address] [place] [address] PCP - General Internal Medicine 06/10/14 02/26/[address] [address] PCP - General 02/27/17 07/27/17 No Ref-Primary, Physician PCP - General 07/28/[address] [address] PCP 08/09/16 Ronaldo Trotter MD [address] [place] [address] Assigned Rheumatology Provider 01/14/20 10/28/20 [place] [address] [place] [address] Assigned OBGYN Provider 01/14/20 documented as of this encounter
--- OUTSIDE RECORDS SUMMARY | 2023-09-12 09:32 | XMS_ITS | Encounter Summary ---
Author Organization [place] Address [address] [place] [address] Care Team Providers Care Cloth Measurer Name Role Phone Liza Pratt DO Primary Care Provider [phone]- [phone] Shaniqua Nguyễn MD Primary Care Provider [phone] [facility], [facility] Unavaila ble [facility] Primary Care Provider No Ref-Primary, Physician Primary Care Provider Ronaldo Trotter MD Unavailable [phone] Niesha Negron DO Unavailable [phone] Encounter Details Date Type Department Care Team (Late st Contact Info) Description 06/09/2013 MyC Medical Advice Rheumatology 2nd Floor, Clinic [address]A [address] [phone] Ronaldo Trotter MD [address] [place] [address] [phone] Social History Tobacco Use Types Packs/Day Years [...] Visit [facility] [address] [place] [phone] Niesha Negron DO [address] [place] [address] documented as of this encounter Visit Diagnoses Not on filedocumented in this encounter Care Teams Cloth Measurer Relationship Specialty Start Date End Date Liza Pratt DO PCP - General 02/26/12 06/09/14 Shaniqua Nguy[place] [address] [place] [address] PCP - General Internal Medicine 06/10/14 02/26/[address] [address] PCP - General 02/27/17 07/27/17 No Ref-Primary, Physician PCP - General 07/28/[address] [address] PCP 08/09/16 Ronaldo Trotter MD [address] [place] [address] Assigned Rheumatology Provider 01/14/20 10/28/20 [place] [address] [place] [address] Assigned OBGYN Provider 01/14/20 documented as of this encounter
--- OUTSIDE RECORDS SUMMARY | 2023-09-12 09:32 | XMS_ITS | Continuity of Care Document ---
Author Organization [facility] Address [address] [place] [address] Phone Care Team Providers Care Regional Service Manager Name Role Phone Giancarlo Block Unavailable Unavailable Allergies, Adverse Reactions, Alerts Substance Reaction Status Criticality ioversol Active No Information erythromycin base nausea and vomiting Active No Information procaine heart racing Active No Information Sulfa (Sulfonamide Antibiotics) rash and sob Active No Information Medications Medication Instructions Dosage Effective Dates (start - stop) Status Comments gabapentin 300 mg capsule 1 tablet qhs for 3 days. Increase to BID for 3 days. Increase to TID. - Active VITAMIN D3 (unknown strength) Not Available - Active SYNTHROID (unknown strength) Not Available - Active OMEGA-3 (unknown strength) Not Available - Active MULTIVITAMINS (unknown strength) Not Available - Active CYCLOBENZAPRINE HCL (unknown strength) Not Available - Active PLAQUENIL (unknown strength) Not Available - Active Procedures Procedure Date Office/Outpatient Visit,[facility], [facility] 2018 Advance Directives Directive Yes / No Effective Date File Name No Information Encounters Encounter Description Practice Location Reason(s) For Visit Diagnoses Date Provider Providers Copied on Encounter [facility], [address], [place], [id number], [place] tel:[phone] [facility] No Information 9 Brian Mondragon. [facility], [address], [place], [id number] , [place]. tel:[phone] Office/Outpat ient Visit,[facility], [facility], [address], [place], [place], [id number], [place] tel:[phone] [facility] [place] Spinal stenosis, cervical region 9 Brian Mondragon. [facility], [address], [place], [place], [id number] , [place]. tel:[phone] Referring Provider: [facility] [address], [address]. tel:[phone] Family History Family Member Type Diagnosis Age At Onset No Information Payers Payer name Insurance type Covered alliance party ID Milo mckinley(s) [facility] [id number] Medicare [facility] [id number] Social History Type Description Quantity Date Captured Comments Sex Female Smoking Status No Information Chief Complaint And Reason For Visit No Information Reason For Referral Reason For Referral No Information History Of Present Illness Encounter Date Complaint History Of Prese nt Illness No Information Functional Status Date Functional Assessmen t No Information Instructions Date Instruction Additional Infor mation No Information Assessments Type Assessment Date No Information Patient Care Teams Name Effective Dates (start - stop) Status Members No Information
--- OUTSIDE RECORDS SUMMARY | 2023-09-12 09:32 | XMS_ITS | Encounter Summary ---
Author Organization [facility] Address [address] [place] [address] Care Team Providers Care Iron Melter Name Role Phone Terence Liza Tracy JAMES Primary Care Provider [phone] Shaniqua Nguyễn MD Primary Care Provider [phone] [facility] Unavail[facility] Primary Care Provider No Ref-Primary, Physician Primary Care Provider Ronaldo Trotter MD Unavailable [phone] Niesha Negron DO Unavailable [phone] Reason for Visit * Reason Onset Date Comments Refill Request 01/22/2013 Encounter Details Date Type Department Care Team (Late st Contact Info) Description 01/22/2013 MyC Refill [facility] Adult Rheumatology 2nd Floor, Clinic [address] [phone] Ronaldo Trotter MD [address] [place] [address] Refill Request Social History Tobacco Use Types Packs/Day Years [...] Description 09/22/2023 10:30 AM CDT Office Visit [facility] [address] [place] [address] Niesha Negron DO [address] [place] [address] documented as of this encounter Visit Diagnoses Not on filedocumented in this encounter Care Teams Iron Melter Relationship Specialty Start Date End Date Liza Pratt DO PCP - General 02/26/12 06/09/14 Shaniqua Nguy[place] [address] [place] [address] PCP - General Internal Medicine 06/10/14 02/26/[address] [address] PCP - General 02/27/17 07/27/17 No Ref-Primary, Physician PCP - General 07/28/[address] [address] PCP 08/09/16 Ronaldo Trotter MD [address] [place] [id number] Assigned Rheumatology Provider 01/14/20 10/28/20 [place] [address] [place] [address] Assigned OBGYN Provider 01/14/20 documented as of this encounter
--- OUTSIDE RECORDS SUMMARY | 2023-09-12 09:32 | XMS_ITS | Encounter Summary ---
Author Organization [facility] Address [address] [place] [address] Care Team Providers Care Socially Responsible Investment Adviser Name Role Phone Liza Pratt DO Primary Care Provider [phone]- [phone] Shaniqua Nguyễn MD Primary Care Provider [phone] [facility] Unavaila ble [facility] Primary Care Provider No Ref-Primary, Physician Primary Care Provider Ronaldo Trotter MD Unavailable [phone] Niesha Negron DO Unavailable [phone] Encounter Details Date Type Department Care Team (Late st Contact Info) Description 04/02/2013 MyC Medical Advice Rheumatology 2nd Floor, Clinic [address]A [address] [id number] Ronaldo Trotter MD [address] [place] [id number] Social History Tobacco Use Types Packs/Day Years [...] Description 09/22/2023 10:30 AM CDT Office Visit [facility] [address] [place] [phone] Niesha Negron DO [address] [place] [address] documented as of this encounter Visit Diagnoses Not on filedocumented in this encounter Care Teams Socially Responsible Investment Adviser Relationship Specialty Start Date End Date Liza Pratt DO PCP - General 02/26/12 06/09/14 Shaniqua Nguy[place] [address] [place] [address] PCP - General Internal Medicine 06/10/14 02/26/[address] [address] PCP - General 02/27/17 07/27/17 No Ref-Primary, Physician PCP - General 07/28/[address] [address] PCP 08/09/16 Ronaldo Trotter MD [address] [place] [address] Assigned Rheumatology Provider 01/14/20 10/28/20 [place] [address] [place] [address] Assigned OBGYN Provider 01/14/20 documented as of this encounter
--- OUTSIDE RECORDS SUMMARY | 2023-09-12 09:32 | XMS_ITS | Clinical Summary ---
Author Organization [facility] Address [place], [place] [address] Care Team Providers Care Soft Sugar Cutter Name Role Phone Guillermo Rossi MD Primary Care Provider Allergies Active Allergy Reactions Criticality Noted Date Comments Diatrizoate Allergen Shortness Of Breath High 2011 IVP dye reaction in approximately 1989. Tolerated Isovue [address] scan (ioxehol) with no reaction. ??(consider premedicating) Tolerated Prohance, gadolinium based dye in 08/2011 MRI. Erythromycin Nausea And Vomiting 03/12/2012 z-pack Procaine Shortness Of Breath,Anxiety,Palp itations Low 07/05/2014 Possibly due to epinephrine or preservative. Patient tolerated preservative free 1% lidocaine in glass vials in 06/2016. Sulfasalazine Edema 03/12/2012 Medications Medication Sig Dispensed Refills Start Date End Date Status cyclobenzaprine (FLEXERIL) 10 mg tablet Take 0.5 tablets by mouth every 8 hours if needed. Active guaiFENesin (MUCINEX) 600 mg Extended-Release tablet Take 600 mg by mouth once daily if needed. 03/12/2012 Active levothyroxine (SYNTHROID) 100 mcg tablet Take 100 mcg by mouth once daily. 01/31/2015 Active multivitamin-minera ls therapeutic (VITAMINS AND MINERALS) tablet Take 1 tablet by mouth once daily. Active naproxen sodium 220 mg cap Take 2 Tabs by mouth every 8 hours if needed. Active fish oil-omega-3 fatty acids (FISH OIL) 1,000-340 mg capsule Take 1 tablet by mouth once daily. Active acetaminophen (TYLENOL EXTRA STRENGTH) 500 mg tablet Take 1,000 mg by mouth every 6 hours if needed. Max acetaminophen dose: 4000mg in 24 hrs. Active hydrOXYchloroQUINE (PLAQUENIL) 200 mg tablet Take 400 mg by mouth on Friday, and 200 mg on the other days (Friday, , Friday and Friday). 04/16/2018 Active montelukast (SINGULAIR) 10 mg tablet Take 10 mg by mouth once daily if needed for Other (Specify) (Seasonal allergy). Active naproxen (ALEVE) 220 mg tablet Take 440 mg by mouth once daily in the evening. And additional daily as needed. Active fluticasone (50 mcg per actuation) nasal solution (FLONASE) Inhale 1 [place] into both nostrils once daily if needed. 07/18/2019 Active cholecalciferol (VITAMIN D3) 1,000 unit tablet Take 1,000 Units by mouth once daily. Active artificial Tear, hypromellose 0.3 % gel, (GENTEAL TEARS SEVERE GEL) 0.3 % gel Place 1 Drop into both eyes once daily if needed. Active calcium citrate-vitamin D3 500 mg-12.5 mcg /5 gram powd Mix in liquid then take by mouth. Active rosuvastatin (CRESTOR) 10 mg tabletIndications:C oronary artery disease TAKE 1 TABLET BY MOUTH EVERYDAY AT BEDTIME 90 Tablet 3 03/12/2021 Active folic acid 1 mg tablet Take 3 mg by mouth once daily. 06/13/2022 Active methotrexate (RHEUMATREX) 2.5 mg tablet TAKE 8 TABLETS (20 MG) BY MOUTH ONCE EVERY WEEK. 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 05/28/2012 Encounters Date Type Department Care Team Description 08/22/2023 Telephone [facility] [address] [place] [address] Khanh Carter MD Results 08/19/2023 9:16 AM CDT - 08/19/2023 11:59 PM CDT Hospital Encounter [facility] [address] [place] [address] Khanh Carter MD Spinal stenosis of lumbar region with neurogenic claudication; Lumbar disc herniation; Lumbar radiculopathy; Lumbar facet arthropathy 08/19/2023 Travel 06/30/2023 Telephone [facility] [address] [place] [phone] Mark Francois RN Device Check (Pacer - has Cond MRI ) 06/30/2023 Telephone [facility] [address] [place] [address] Khanh Carter MD Questions from Last 3 Months Immunizations Name Administration Dates Next Due AMB Influenza, IIV3 (Age >=3 years) Preserve Free (Flu Clinic Only) 01/29/2008 Social History Tobacco Use Types Packs/Day Years Used Date Smoking Tobacco: Never Smokeless Tobacco: Never Tobacco Cessation:Counseling Given: Yes Alcohol Use Standard Drinks/Week Comments Yes 0 (1 standard drink = 0.6 oz pur e alcohol) Wine on the weekend. Social Connections Answer Date Recorded Frequency of Communication with Friends and Fami ly Not on file 03/24/2021 Financial Resource Strain Answer Date R ecorded Difficulty of Paying Living Expenses Not on file 03/24/2021 Difficulty of Paying Living Expenses Not on file 03/24/2021 Sex and Gender Information Value Date Recorded Sex Assigned at Not on file Gender Identity Not on file Sexual Orientation Not on file Obstetrics History Last Filed Vital Signs Vital Sign Reading Time Taken Comments Blood Pressure 163/82 07/08/2022 2:49 PM CDT Pulse 70 08/07/2020 9:44 AM CDT Temperature 36.8 ??C (98.2 ??F) 07/08/2022 2:49 PM CD T Respiratory Rate 14 01/14/2020 11:58 AM CDT Oxygen Saturation 98% 07/08/2022 2:49 PM CDT Inhaled Oxygen Concentration - - Weight 56.7 kg (125 lb) 08/07/2020 9:44 AM CDT Height 162.6 cm (5' 4) 11/26/2019 11:15 PM CDT Body Mass Index 21.46 11/26/2019 11:15 PM CDT Plan of Treatment Upcoming Encounters Date Type Department Care Team (Late st Contact Info) Description 09/12/2023 10:00 AM CDT Office Visit [facility] [address] [place] [address] Khanh Carter MD [address] [place] [address] Arrived 10/24/2023 10:00 AM CDT Office Visit [facility] [address] [place] [address] Khanh Carter MD [address] [place] [address] 12/10/2023 Cardiac Device Check [facility] [phone] Health Maintenance Due Date Last Done Comments Tdap 1962 Depression screening for age 12+ 1963 BMI (ht and wt on same day) for age 18+ 1969 Hepatitis C screening for ag e 18-79 1969 Zoster (shingles) series for age 50+ (1 of 2) 1970 Tetanus booster 1971 Colonoscopy through age 75 02/15/1996 Lipids for age 45-75 02/15/1996 Mammogram for age 45-75 02/15/1996 DEXA/DXA scan for age 65+ 02/15/2016 Medicare Wellness for age 65+ 02/15/2016 Pneumococcal series for age 65+ (1 of 1 - PCV) 02/15/2016 COVID-19 vaccine series ( season) 2022 04/05/2022, 02/20/2021, 05/18/2020, Additional history exists Influenza for age 65+ 11/23/2023 01/29/2008 Procedures Procedure Name Priority Date/Time Associated Diagnosis Comments AMB EPIDURAL STEROID INJECTION Routine 09/12/2023 8:00 AM CDT Lumbar radiculopathy Lumbar facet arthropathy MR SPINE LUMBAR WO Routine 08/19/2023 10 :36 AM CDT Spinal stenosis of lumbar region with neurogenic claudication Lumbar disc herniation Lumbar radiculopathy Lumbar facet arthropathy PACER SUSANA DUAL CHAMBER W REPROG Routine 08/19/2023 10:00 AM CDT from Last 3 Months Results * MR SPINE LUMBAR WO (08/19/2023 10:36 AM CDT) Anatomical Region Laterality Modality Spine, LUMBAR SPINE Magnetic Res onance, Other 08/19/2023 10:4 8 AM CDT Impressions 08/19/2023 10:48 AM CDT 1. New grade 1 degenerative anterolisthesis of L2 on L3. 2. No fractures. 3. Lumbar spondylosis. 4. At L2-3, mild narrowing of the spinal canal and left neural foramen. 5. At L3-4, moderate narrowing of the spinal canal and left neural foramen 6. At L4-5, mild narrowing of the spinal canal. Potential impingement of the traversing right L5 nerve root. Mild narrowing of the right neural foramen 7. At L5-S1, mild narrowing of the bilateral neural foramina Dictated by Parrish Leroy MD @ 08/19/2023 10:48:37 AM (Electronically Signed) Narrative 08/19/2023 10:48 AM CDT For Patients: ??As a result of the Cures Act, medical imaging exams and procedure reports are released immediately into your electronic medical record. ??You may view this report before your referring provider. ??If you have questions, please contact your health care provider. INDICATION: Lumbar disc herniation. Lumbar radiculopathy. Neurogenic claudication. COMPARISON: 08/24/2020. Technique Sagittal T1, T2, and STIR sequences. Axial T1 and T2 weighted sequences. FINDINGS: Degenerative retrolisthesis of L5 relative to both L4 and S1 measures approximately 5 mm. New degenerative anterolisthesis of L2 on L3 measuring approximate 4 millimeters. Stable degenerative anterolisthesis of L3 on L4 measures approximately 5 mm. No fractures. No vertebral body loss of height. No ligamentous injury. No suspicious osseous lesions. Normal conus terminates at L1. [id number]: No spinal canal neural foraminal narrowing. L1-2: Stable disc degeneration. No narrowing of the spinal canal. No neural foraminal narrowing. L2-3: New degenerative grade 1 anterolisthesis. Unroofed posterior disc bulge. Mild narrowing of spinal canal. Oblique orientation of bilateral foramina with mild narrowing of the left neural foramen. No narrowing of the right neural foramen. L3-4: Stable grade 1 anterolisthesis. Disc degeneration and unroofed diffuse disc bulge eccentric to the left. Moderate narrowing of spinal canal. Mild right and moderate left neural foraminal narrowing. Mild facet arthropathy. L4-5: Grade 1 anterolisthesis. Disc degeneration and unroofed posterior disc bulge. Mild narrowing of spinal canal. Right subarticular recess narrowing potential impingement of the traversing right L5 nerve root. Mild narrowing of the right neural foramen. No narrowing of the left neural foramen. Mild facet arthropathy. L5-S1: Grade 1 retrolisthesis. Disc degeneration and loss disc height. Modic type 2 endplate changes. No narrowing of spinal canal. No impingement of the traversing S1 nerve roots. Mild narrowing of bilateral foramina. Degenerative changes of the SI joints. Normal paraspinal soft tissues. Procedure Note Parrish Leroy MD, PhD - 08/19/2023 For Patients: As a result of the Century Cures Act, medical imagingexams and procedure reports are released immediately into your electronicmedical record. You may view this report before your referring provider.If you have questions, please contact your health care provider. INDICATION: Lumbar disc herniation. Lumbar radiculopathy. Neurogenic claudication. COMPARISON: 08/24/2020. Technique Sagittal T1, T2, and STIR sequences. Axial T1 and T2 weightedsequences. FINDINGS: Degenerative retrolisthesis of L5 relative to both L4 and S1 measuresapproximately 5 mm. New degenerative anterolisthesis of L2 on L3 measuring approximate 4millimeters. Stable degenerative anterolisthesis of L3 on L4 measuresapproximately 5 mm. No fractures. No vertebral body loss of height. No ligamentous injury. Nosuspicious osseous lesions. Normal conus terminates at L1. [id number]: No spinal canal neural foraminal narrowing. L1-2: Stable disc degeneration. No narrowing of the spinal canal. Noneural foraminal narrowing. L2-3: New degenerative grade 1 anterolisthesis. Unroofed posterior discbulge. Mild narrowing of spinal canal. Oblique orientation of bilateralforamina with mild narrowing of the left neural foramen. No narrowing ofthe right neural foramen. L3-4: Stable grade 1 anterolisthesis. Disc degeneration and unroofeddiffuse disc bulge eccentric to the left. Moderate narrowing of spinalcanal. Mild right and moderate left neural foraminal narrowing. Mild facetarthropathy. L4-5: Grade 1 anterolisthesis. Disc degeneration and unroofed posteriordisc bulge. Mild narrowing of spinal canal. Right subarticular recessnarrowing potential impingement of the traversing right L5 nerve root.Mild narrowing of the right neural foramen. No narrowing of the leftneural foramen. Mild facet arthropathy. L5-S1: Grade 1 retrolisthesis. Disc degeneration and loss disc height.Modic type 2 endplate changes. No narrowing of spinal canal. Noimpingement of the traversing S1 nerve roots. Mild narrowing of bilateralforamina. Degenerative changes of the SI joints. Normal paraspinal soft tissues. IMPRESSION: 1. New grade 1 degenerative anterolisthesis of L2 on L3. 2. No fractures. 3. Lumbar spondylosis. 4. At L2-3, mild narrowing of the spinal canal and left neural foramen. 5. At L3-4, moderate narrowing of the spinal canal and left neural foramen 6. At L4-5, mild narrowing of the spinal canal. Potential impingement ofthe traversing right L5 nerve root. Mild narrowing of the right neuralforamen 7. At L5-S1, mild narrowing of the bilateral neural foramina Dictated by Parrish Leroy MD @ 08/19/2023 10:48:37 AM (Electronically Signed) Khanh Carter MD MR * PACER SUSANA DUAL CHAMBER W REPROG (08/19/2023 10:00 AM CDT) Cong Sparks MD - 08/19/2023 10:00 AM CDT Devante Myers RN ? 08/19/2023 10:39 AM PACEMAKER EVALUATION REPORT 08/19/23 Indication for Pacemaker: Complete Heart Block Primary MD: Guillermo Rossi MD Primary Insurance Claims Processor: MHI Implanting MD: Austin Mahan MD DEVICE DATA Computer Teacher Medtronic: Model Mariluz XT DR MRI Sure Scan [id number] Implant Date 11/27/19 LEAD DATA Atrial Lead: Computer Teacher Medtronic: Model 5076-45 Implant Date 11/27/19 RV Lead: Computer Teacher Medtronic: Model 3830-69 Implant Date 11/27/19 Advisory: None Location of evaluation: [facility] Reason for evaluation: Routine-Overdue MEASUREMENTS Atrial Sensing - P wave: 3.6 mV Atrial Capture: Maintained: 1 V @ 0.4 ms Atrial Lead Impedance: 494 ohms Ventricular Sensing - R wave: No R wave VVI 30 RV Capture: Maintained: 1.0 V @ 0.4 ms Ventricular Lead Impedance: 513 ohms ?? Presenting/underlying Rhythm: Sinus Rhythm ~ 73 bpm with CHB DIAGNOSTIC DATA ??since 08/12/21 Atrial paced: 12.2% ??Ventricular paced: ??97.8 % Histogram: Appropriate heart rate distribution Magnet rate: 85 bpm ??Battery voltage: 3 V ??Estimated battery ?? longevity: 9 yrs FINAL PARAMETERS Mode: DDD ??Lower rate: 60 bpm ??Upper rate: 130/130 bpm ??AV Delay: 220/220 ms ??Mode Switch: 171 bpm ??Rate Response: with mode switch Low 3/3 Atrial - Amplitude: adaptive 2.0V ??Pulse width: 0.4 ms ?? Sensitivity: 0.3 mV ??Refractory: auto ms ??Polarity: Bipolar Right Ventricular - Amplitude: adaptive 2.0 V ??Pulse width: 0.4 ms ?? Sensitivity: 0.9 mV ??Refractory: 200 ms ??Polarity: Bipolar Changes made: Reprogrammed DOO 80 bpm for MRI. Post MRI returned to initial settings Conclusion: Normal pacemaker function. Overdue for follow up. Follow up: 4 months via wireless Carelink, appointment made and given to patient. Routine follow up: q 4 month remote annual [place] clinic each July Devante Myers, RN Nurse Clinician II [facility] Pacemaker/ICD Clinic [phone] Cong Mahan MD CARDIAC SER VICES ORD from Last 3 Months Advance Directives * Full Code (Latest Code Status on File) Date Activated Date Inactivated Comments 11/26/2019 11:27 PM 11/28/2019 5:07 PM Question Answer Comments Code Status Discussion: Discussed Care Teams Soft Sugar Cutter Relationship Specialty Start Date End Date Guillermo Rossi MD [address] [place] [address] PCP - General Internal Medicine 06/13/16
--- OUTSIDE RECORDS SUMMARY | 2023-09-12 09:32 | XMS_ITS | Encounter Summary ---
Author Organization [facility] Address [address] [place] [address] Care Team Providers Care Fish Technologist Name Role Phone Liza Pratt DO Primary Care Provider [phone]- [phone] Shaniqua Nguyễn MD Primary Care Provider [phone] [facility] Unavaila ble [facility] Primary Care Provider No Ref-Primary, Physician Primary Care Provider Ronaldo Trotter MD Unavailable [phone] Niesha Negron DO Unavailable [phone] Encounter Details Date Type Department Care Team (Late st Contact Info) Description 02/03/2014 MyC Medical Advice [facility] Adult Rheumatology 2nd Floor, Clinic [address] [phone] Ronaldo Trotter MD [address] [place] [address] Social History Tobacco Use Types Packs/Day [...] Telephone Encounter - Ronaldo Trotter MD - 02/03/2014 10:22 AM CST Let's get an ESR/CRP and CBC with Diff, and unless the CBC suggests infection , try a medrol dose juan carlos. If still having problems after /despite that, let's see her back 02/25 PREVENTION RESEARCH ENGINEER documented in this encounter Plan of Treatment Upcoming Encounters Date Type Department Care Team (Late st Contact Info) Description 09/22/2023 10:30 AM CDT Office Visit [facility] [address] [place] [address] Niesha Negron DO [address] [place] [address] documented as of this encounter Visit Diagnoses Not on filedocumented in this encounter Care Teams Fish Technologist Relationship Specialty Start Date End Date Liza Pratt DO PCP - General 02/26/12 06/09/14 Shaniqua Nguy[place] [address] [facility] [place] [address] PCP - General Internal Medicine 06/10/14 02/26/[address] [address] PCP - General 02/27/17 07/27/17 No Ref-Primary, Physician PCP - General 07/28/17 [facility] [address] [place] [address] PCP 08/09/16 Ronaldo Trotter MD [address] [address] Assigned Rheumatology Provider 01/14/20 10/28/20 [place] [address] [place] [address] Assigned OBGYN Provider 01/14/20 documented as of this encounter
--- OUTSIDE RECORDS SUMMARY | 2023-09-12 09:32 | XMS_ITS | Encounter Summary ---
Author Organization [facility] Address [address] [place] [address] Care Team Providers Care Sheep Farmer Name Role Phone Liza Pratt DO Primary Care Provider [phone]- [phone] Shaniqua Nguyễn MD Primary Care Provider [phone] [facility], [facility] Unavail[facility] Primary Care Provider No Ref-Primary, Physician Primary Care Provider Ronaldo Trotter MD Unavailable [phone] Niesha Negron DO Unavailable [phone] Encounter Details Date Type Department Care Team (Late st Contact Info) Description 06/08/2013 [facility] Medical Advice Rheumatology 2nd Floor, Clinic [address] [address] Ronaldo Trotter MD [address] [place] [address] [id number] Social History Tobacco Use Types Packs/Day Years [...] Description 09/22/2023 10:30 AM CDT Office Visit [facility] [address] [place] [phone] Niesha Negron DO [address] [place] [address] documented as of this encounter Visit Diagnoses Not on filedocumented in this encounter Care Teams Sheep Farmer Relationship Specialty Start Date End Date Liza Pratt DO PCP - General 02/26/12 06/09/14 Shaniqua Nguy[place] [address] [place] [address] PCP - General Internal Medicine 06/10/14 02/26/[address] [address] PCP - General 02/27/17 07/27/17 No Ref-Primary, Physician PCP - General 07/28/[address] [address] PCP 08/09/16 Ronaldo Trotter MD [address] [place] [address] Assigned Rheumatology Provider 01/14/20 10/28/20 [place] [address] [place] [address] Assigned OBGYN Provider 01/14/20 documented as of this encounter
== END 2023-09-12 09:30 | disposition home or self-care (01) ==
LOC: INJ CL 09:29
PROVIDERS: PCP Internal Medicine; Visit Provider Family Medicine
DX: M54.16 Radiculopathy, lumbar region; M51.36 Other intervertebral disc degeneration, lumbar region
CPT/HCPCS: 62323; J0702

== ENCOUNTER 2023-12-26 09:15 | Outpatient (RCR) | payer MEDICARE, BC, SELFPAY | END 2024-04-24 23:59 | disposition home or self-care (01) | PROVIDERS: PCP Internal Medicine; Visit Provider Family Medicine | DX: M48.062 Spinal stenosis, lumbar region with neurogenic claudication (principal); M54.16 Radiculopathy, lumbar region; M47.816 Spondylosis without myelopathy or radiculopathy, lumbar region; Z51.89 Encounter for other specified aftercare | CPT/HCPCS: 97110; 97140; 97162 ==

== ENCOUNTER 2023-12-30 17:31 | Outpatient (CLI) | payer MEDICARE, BC, SELFPAY ==
--- OUTSIDE RECORDS SUMMARY | 2023-12-30 17:34 | XMS_ITS | Encounter Summary ---
Author Organization [facility] Address [address] [place] [address] Care Team Providers Care Android Framework Developer Name Role Phone [facility] Unavaila ble No Ref-Primary, Physician Primary Care Provider Encounter Details Date Type Department Care Team (Latest Contact Info) Description 09/22/2023 Travel Social History Tobacco Use Types Packs/Day Years Used Date Smoking Tobacco: Never Smokeless Tobacco: Never Alcohol Use Standard Drinks/Week Comments Yes 0 (1 standard drink = 0.6 oz pur e alcohol) socially wine PHQ-2 Answer Date Recorded PHQ-2 Score 0 09/22/2023 Adolescent Education Answer Date Record ed Getting School Help Needed Not on file 12/15 Sex and Gender Information Value Date Recorded Sex Assigned at Female 09/22/2023 12:43 AM CDT Gender Identity Female 09/22/2023 12:43 AM CDT Sexual Orientation Not on file documented as of this encounter Plan of Treatment Not on file documented as of this encounter Visit Diagnoses Not on filedocumented in this encounter Care Teams Android Framework Developer Relationship Specialty Start Date End Date No Ref-Primary, Physician PCP - General 07/28/[address] [address] PCP 08/09/16 documented as of this encounter
--- OUTSIDE RECORDS SUMMARY | 2023-12-30 17:34 | XMS_ITS | Encounter Summary ---
Author Organization [facility] Address [address] [place] [address] Care Team Providers Care Market Relationship Manager Name Role Phone Liza Pratt DO Primary Care Provider [phone] Shaniqua Nguyễn MD Primary Care Provider [phone] [facility] Unavaila ble [facility] Primary Care Provider No Ref-Primary, Physician Primary Care Provider Ronaldo Trotter MD Unavailable Niesha Negron DO Unavailable Niesha Negron DO Unavailable [phone] Reason for Visit * Reason Onset Date Comments Refill Request 01/22/2013 Encounter Details Date Type Department Care Team (Late st Contact Info) Description 01/22/2013 MyC Refill [facility] Adult Rheumatology 2nd Floor, Clinic [address] [address] Ronaldo Trottre MD [address] [place] [address] Refill Request Social History Tobacco Use [...] on filedocumented in this encounter Care Teams Market Relationship Manager Relationship Specialty Start Date End Date Liza Pratt DO PCP - General 02/26/12 06/09/14 Shaniqua Nguy[place] [address] [place] [address] PCP - General Internal Medicine 06/10/14 02/26/[address] [address] PCP - General 02/27/17 07/27/17 No Ref-Primary, Physician PCP - General 07/28/[address] [address] PCP 08/09/16 Ronaldo Trotter MD [address] [place] [address] Assigned Rheumatology Provider 01/14/20 10/28/20 [place] [address] [place] [address] Assigned OBGYN Provider 01/14/20 Niesha Negron DO [address] [place] [address] Assigned OBGYN Provider 10/14/23 documented as of this encounter
--- OUTSIDE RECORDS SUMMARY | 2023-12-30 17:34 | XMS_ITS | Encounter Summary ---
Author Organization [facility] Address [address] [place] [address] Care Team Providers Care Barrel Burner Name Role Phone Shaniqua Nguyễn MD Primary Care Provider [phone] [facility] Unavail[facility] Primary Care Provider No Ref-Primary, Physician Primary Care Provider Ronaldo Trotter MD Unavailable [phone] Niesha Negron DO Unavailable [phone] Niesha Negron DO Unavailable Encounter Details Date Type Department Care Team (Late st Contact Info) Description 10/04/2015 [facility] [address] [address] Ronaldo Trotter MD [address] [place] [address] Sicca syndrome (H) (Primary Dx); AA (alopecia [...] documented in this encounter Plan of Treatment Not on file documented as of this encounter Results * Erythrocyte sedimentation rate auto (08/04/2016 1:23 PM CDT) Pathologist [facility] Sed Rate 11 0 - 30 mm/h [facility] Blood specimen (specimen) 08/04/2016 1:23 PM CDT 08/04/2016 1:24 PM CDT Ronaldo Trotter MD LAB - BLOOD ORDERABL ES Performing Organization Address City/[facility]/ZIP Co de Phone Number [facility] [address] [place] [address] * CRP inflammation (08/04/2016 1:23 PM CDT) CRP Inflammation <2.9 0.0 - 8.0 mg/L [facility] Blood specimen (specimen) 08/04/2016 1:23 PM CDT 08/04/2016 1:24 PM CDT Ronaldo Trotter MD LAB - BLOOD ORDERABL ES [facility] [address] [place] [address] * Complement C3 (08/04/2016 1:23 PM CDT) Complement C3 114 76 - 169 mg/dL [facility] Blood specimen (specimen) 08/04/2016 1:23 PM CDT 08/04/2016 1:24 PM CDT Ronaldo Trotter MD LAB - BLOOD ORDERABL ES [facility] [address] [place] [address] * CBC with platelets differential (08/04/2016 1:23 PM CDT) WBC 4.7 4.0 - 11.0 10e9/L [facility] RBC Count 3.94 3.8 - 5.2 10e12/L [facility] Hemoglobin 12.5 11.7 - 15.7 g/dL [facility] Hematocrit 37.0 35.0 - 47.0 % [facility] MCV 94 78 - 100 fl [facility] MCH 31.7 26.5 - 33.0 pg [facility] MCHC 33.8 31.5 - 36.5 g/dL [facility] RDW 12.2 10.0 - 15.0 % [facility] Platelet Count 230 150 - 450 10e9/L [facility] Diff Method Automated Method [facility] % Neutrophils 43.5 % [facility] % Lymphocytes 40.8 % [facility] % Monocytes 13.4 % [facility] % Eosinophils 2.1 % [facility] % Basophils 0.2 % [facility] Absolute Neutrophil 2.1 1.6 - 8.3 10e9/L [facility] Absolute Lymphocytes 1.9 0.8 - 5.3 10e9/L [facility] Absolute Monocytes 0.6 0.0 - 1.3 10e9/L [facility] Absolute Eosinophils 0.1 0.0 - 0.7 10e9/L [facility] Absolute Basophils 0.0 0.0 - 0.2 10e9/L [facility] Blood specimen (specimen) 08/04/2016 1:23 PM CDT 08/04/2016 1:24 PM CDT Ronaldo Trotter MD LAB - BLOOD ORDERABL ES [facility] [address] 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 [facility] [place] [address] PCP - General Internal Medicine 06/10/14 02/26/[address] [address] PCP - General 02/27/17 07/27/17 No Ref-Primary, Physician PCP - General 07/28/[address] [address] PCP 08/09/16 Ronaldo Trotter MD [address] [place] [address] Assigned Rheumatology Provider 01/14/20 10/28/20 [place] [address] [place] [address] Assigned OBGYN Provider 01/14/20 Niesha Negron DO [address] [address] Assigned OBGYN Provider 10/14/23 documented as of this encounter
--- OUTSIDE RECORDS SUMMARY | 2023-12-30 17:34 | XMS_ITS | Encounter Summary ---
Author Organization [facility] Address [address] [place] [address] Care Team Providers Care Headstart Teacher Name Role Phone Terence Lizajennifer Molina DO Primary Care Provider [phone] Shaniqua Nguyễn MD Primary Care Provider [phone] [facility] Unavaila ble [facility] Primary Care Provider No Ref-Primary, Physician Primary Care Provider Ronaldo Trotter MD Unavailable [phone] Niesha Negron DO Unavailable Niesha Negron DO Unavailable Encounter Details Date Type Department Care Team (Late st Contact Info) Description 06/08/2013 [facility] Medical Advice Rheumatology 2nd Floor, Clinic [address] [id number] Ronaldo Trotter MD [address] [place] [address] Social History Tobacco Use Types Packs/Day [...] on filedocumented in this encounter Care Teams Headstart Teacher Relationship Specialty Start Date End Date Liza Pratt DO PCP - General 02/26/12 06/09/14 [place] Nguy[place] [address] [facility] [place] [address] PCP - General Internal Medicine 06/10/14 02/26/[address] [address] PCP - General 02/27/17 07/27/17 No Ref-Primary, Physician PCP - General 07/28/[address] [address] PCP 08/09/16 Ronaldo Trotter MD [address] [place] [address] Assigned Rheumatology Provider 01/14/20 10/28/20 [place] [address] [place] [address] Assigned OBGYN Provider 01/14/20 Niesha Negron DO [address] [address] Assigned OBGYN Provider 10/14/23 documented as of this encounter
--- OUTSIDE RECORDS SUMMARY | 2023-12-30 17:34 | XMS_ITS | Encounter Summary ---
Author Organization [facility] Address [address] [place] [address] Care Team Providers Care Packing Machine Pilot Can Router Name Role Phone Clinic, [facility] Unavaila ble No Ref-Primary, Physician Primary Care Provider Ronaldo Trotter MD Unavailable [phone] Niesha Negron DO Unavailable Niesha Negron DO Unavailable Encounter Details Date Type Department Care Team (Late st Contact Info) Description 09/28/2018 My[facility] Medical Advice [address] [place] [phone] Margie Chery High risk HPV infection Social [...] site documented in this encounter Care Teams Packing Machine Pilot Can Router Relationship Specialty Start Date End Date No Ref-Primary, Physician PCP - General 07/28/17 [facility], [address] [address] PCP 08/09/16 Ronaldo Trotter MD [address] [place] [address] Assigned Rheumatology Provider 01/14/20 10/28/20 [place] [address] [place], [place] [address] Assigned OBGYN Provider 01/14/20 Niesha Negron DO [address] [address] Assigned OBGYN Provider 10/14/23 documented as of this encounter
--- OUTSIDE RECORDS SUMMARY | 2023-12-30 17:34 | XMS_ITS | Encounter Summary ---
Author Organization [facility] Address [address] [place] [address] Care Team Providers Care Sign Letterer Name Role Phone Terence Lizajennifer Molina DO Primary Care Provider [phone] Shaniqua Nguyễn MD Primary Care Provider [phone] [facility] Un[facility] Primary Care Provider No Ref-Primary, Physician Primary Care Provider Ronaldo Trotter MD Unavailable Niesha Negron DO Unavailable Niesha Negron DO Unavailable Encounter Details Date Type Department Care Team (Late st Contact Info) Description 09/28/2013 My[facility] Medical Advice P Adult Rheumatology 2nd Floor, Clinic [address] [address] Ronaldo Trotter MD [address] [place] [address] Social History Tobacco Use Types Packs/Day [...] on filedocumented in this encounter Care Teams Sign Letterer Relationship Specialty Start Date End Date Liza Pratt DO PCP - General 02/26/12 06/09/14 Shaniqua Nguy[place] [address] [place] [address] PCP - General Internal Medicine 06/10/14 02/26/[address] [address] PCP - General 02/27/17 07/27/17 No Ref-Primary, Physician PCP - General 07/28/[address] [address] PCP 08/09/16 Ronaldo Trotter MD [address] [place] [address] Assigned Rheumatology Provider 01/14/20 10/28/20 [place] [address] [facility] [place] [address] Assigned OBGYN Provider 01/14/20 Niesha Negron DO [address] [address] Assigned OBGYN Provider 10/14/23 documented as of this encounter
--- OUTSIDE RECORDS SUMMARY | 2023-12-30 17:34 | XMS_ITS | Referral Summary ---
Author Organization [place] Address [address] [place] [address] Care Team Providers Care Trademark Affixer Name Role Phone Clinic, [facility] Unavaila ble No Ref-Primary, Physician Primary Care Provider Niesha Negron DO Unavailable [phone] Allergies Active Allergy Reactions Criticality Noted Date Comments Erythromycin Nausea and Vomiting 03/12/2012 Contrast Dye Shortness Of Breath High 03/12/2012 Procaine Anxiety,Palpitations ,Difficulty breathing Low 07/05/2014 Sulfa Antibiotics Swelling 03/12/2012 Medications Medication Sig Dispensed Refills Start Date End Date Status Multiple Vitamins-Minerals (MULTI VITAMIN/MINERALS PO)Indications:Chest tightness,Fatigue,Co nnective tissue disease (H) Take 1 tablet by mouth daily. Active Coggon-3 Fatty Acids (OMEGA-3 FISH OIL PO)Indications:Chest tightness,Fatigue,Co nnective tissue disease (H) Take 1 tablet by mouth daily 1200 daily Active cyclobenzaprine (FLEXERIL) 10 MG tabletIndications:Ch est tightness,Fatigue,Co nnective tissue disease (H) Take 0.5 tablets by mouth 3 times daily as needed. Active Naproxen Sodium (ALEVE PO) Take by mouth At Bedtime Active levothyroxine (SYNTHROID) 100 MCG tabletIndications:Hy pothyroidism, unspecified hypothyroidism type Take 1 tablet (100 mcg) by mouth daily Pt needs a lab done now. 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 TAKE [...] Overview: 06/06/14 NIL pap, +HPV 16 08/11/14 [place]= DEB 1 Pap= NIL. Co-test 12 months 12/25/15: NIL pap, + HR HPV 16. Plan [place]. 04/03/16: BX: normal, ECC: Neg. Plan cotest in 1 year per provider. 05/15/17 NIL pap, + HR HPV type 16. Plan colp due by 08/12/17 06/30/17 [place]- DEB 1 and high grade lesion on [...] Neg HPV. Plan cotest in 3 years. 09/22/23 NIL pap, neg HPV. Plan cotest in 3 years. *After excision or ablation for DEB 2+, patient needs a cotest in 6 months, then cotesting annually X 3, then a cotest every 3 years for at least 25 years.* (2019 ASCCP guideline). Allergic rhinitis due to pollen 11/04/2013 Raynaud's syndrome 04/27/2013 Sicca syndrome 05/19/2012 Sinusitis 05/19/2012 Immunizations Name Administration Dates Next Due Flu, Unspecified 12/20/2008,01/29/2008 Influenza (H1N1) 02/20/2009 Influenza (High Dose) Trival ent,PF (Fluzone) 02/12/2017 Influenza (IIV3) PF 12/24/2012, 3,12/23/2011,2010,01/07/2010 Pneumo [...] AM CDT Sexual Orientation Not on file Last Filed Vital Signs Vital Sign Reading Time Taken Comments Blood Pressure 118/70 09/22/2023 10:55 AM CDT Pulse 80 04/29/2019 8:26 AM PLANNING MANAGER Temperature 36.8 ??C (98.2 ??F) 01/20/2018 2:57 PM CD T Respiratory Rate 17 04/29/2019 8:26 AM PLANNING MANAGER Oxygen Saturation 99% 04/29/2019 8:26 AM PLANNING MANAGER RA Inhaled Oxygen Concentration - - Weight 59.2 kg (130 lb 8 oz) 09/22/2023 10:55 AM CDT Height 160 cm (5' 3) 03/05/2021 3:17 PM PLANNING MANAGER Body Mass Index 23.12 03/05/2021 3:17 PM PLANNING MANAGER Plan of Treatment Not on file Procedures Procedure Name Priority Date/Time Associated Diagnosis Comments HPV AND GYNECOLOGIC CYTOLOGY PANEL Routine 09/22/2023 11:47 AM CDT Moderate dysplasia of cervix (DEB II) Cervical high risk HPV (human papillomavirus) test positive GYNECOLOGIC CYTOLOGY Routine 09/22/2023 11:47 AM CDT Moderate dysplasia of cervix (DEB II) Cervical high risk HPV (human papillomavirus) test positive TSH Routine 02/23/2017 2:17 PM PLANNING MANAGER Acute sinusitis with symptoms > 10 days Fatigue, unspecified type COMPREHENSIVE METABOLIC PANEL Routine 03/01/2016 10:19 AM PLANNING MANAGER Routine general medical examination at a health care facility LIPID REFLEX TO DIRECT LDL PANEL Routine 03/01/2016 10:19 AM PLANNING MANAGER Routine general medical examination at a [facility] care facility COLONOSCOPY Routine 07/08/2014 10:44 AM CDT MAMMOGRAM - HIM SCAN 10/08/2013 12:00 AM CDT from Last 3 Months or Most Recently Relevant to Health Maintenance Results * Pap Diagnostic with HPV (09/22/2023 11:47 AM CDT) Human Papilloma Virus 16 DNA Negative Negative 09/23/2023 1:24 PM CDT SPECIALTY LAB[facility] Human Papilloma Virus 18 DNA Negative Negative 09/23/2023 1:24 PM CDT [facility] Human Papilloma Virus Other Negative Negative 09/23/2023 1:24 PM CDT [facility] FINAL DIAGNOSIS This patient's sample is negative for high risk HPV DNA. METHODOLOGY: The [employer] system uses automated extraction, simultaneous amplification of HPV (E6/E7 oncogenes) and beta-globin, followed by real time detection of fluorescent labeled HPV and beta globin using specific oligonucleotide probes. The test specifically identifies types HPV 16 DNA and HPV 18 DNA while concurrently detecting the rest of the high risk types (31, 33, 35, 39, 45, 51, 52, 56, 58, 59, 66 or 68). COMMENTS: This test is not intended for use as a screening device for woman under age 30 with normal cervical cytology. Results should be correlated with cytologic and histologic findings. Close clinical follow up is recommended. 09/23/2023 1:24 PM CDT MOLECULAR DIAGNOSTICS Brushing ENDOCERVICAL STRUCTURE / Unknown Non-blood Collection / Unknown 09/22/2023 11:47 AM CDT 09/22/2023 12:12 PM CDT Niesha Negron DO LAB - BLOOD ORDER SNOW [facility] Specialty Lab [address] [facility] [address], [address] [address], [facility] MOLECULAR DIAGNOSTICS Molecular Diagnostics [address] [facility] [address], [address] [address], [facility] * Gynecologic Cytology (PAP) (09/22/2023 11:47 AM CDT) Interpretation Negative for Intraepithelial Lesion or Malignancy (NILM) 09/26/2023 2:27 PM CDT [facility] Comment Papanicolaou Test Limitations: Cervical cytology is a screening test with limited sensitivity, and regular screening is critical for cancer prevention. Pap tests are primarily effective for the diagnosis/prevent ion of squamous cell carcinoma, not adenocarcinoma or other cancers. 09/26/2023 2:27 PM CDT [facility] Specimen Adequacy Satisfactory for evaluation, endocerv/transfor mation zone component absent, atrophy 09/26/2023 2:27 PM CDT [facility] Clinical Information post-menopausal 09/26/2023 2:27 PM CDT [facility] Previous Abnormal? No Comment: History of HPV and CIN1 09/26/2023 2:27 PM CDT [facility] Performing Labs The technical component of this testing was completed at [facility]. Stain controls for all stains resulted within this report have been reviewed and show appropriate reactivity. 09/26/2023 2:27 PM CDT [facility] Brushing ENDOCERVICAL STRUCTURE / Unknown Non-blood Collection / Unknown 09/22/2023 11:47 AM CDT 09/23/2023 8:34 AM CDT Niesha Negron DO LAB - BEAKER AP [facility] Specialty Lab [address] [facility] [address], [address] [address], [facility] * (ABNORMAL) TSH (02/23/2017 2:17 PM PLANNING MANAGER) TSH 0.38(L) 0.40 - 4.00 mU/L 02/24/2017 3:[address] [facility] Blood specimen (specimen) 02/23/2017 2:17 PM PLANNING MANAGER 02/23/2017 2:18 PM PLANNING MANAGER Angel Ordaz MD LAB - BLOOD ORDERABL ES Performing Organization Address [facility] Co de Phone Number [facility] [address] [place] [address] * (ABNORMAL) Lipid Profile with reflex to direct LDL (03/01/2016 10:19 AM PLANNING MANAGER) Pathologist [facility] Cholesterol 195 <200 mg/dL [facility] Triglycerides 62 <150 mg/dL [facility] HDL Cholesterol 78 >49 mg/dL [facility] LDL Cholesterol Calculated 105(H) <100 mg/dL [facility] Comment: Above desirable: ??100-129 mg/dl Borderline High: ??130-159 mg/dL High: ? 160-189 mg/dL Very high: ? >189 mg/dl Non HDL Cholesterol 117 <130 mg/dL [facility] Blood specimen (specimen) 03/01/2016 10:19 AM PLANNING MANAGER 03/01/2016 10:24 AM PLANNING MANAGER Niesha Negron DO LAB - BLOOD ORDER SNOW Performing Organization Address [facility] Co de Phone Number [facility] [address] [place] [address] * (ABNORMAL) Comprehensive metabolic panel (BMP + Alb, Alk Phos, ALT, AST, Total. Bili, TP) (03/01/2016 10:19 AM PLANNING MANAGER) Pathologist [facility] Sodium 143 133 - 144 mmol/L [facility] Potassium 4.2 3.4 - 5.3 mmol/L [facility] Chloride 108 94 - 109 mmol/L [facility] Carbon Dioxide 26 20 - 32 mmol/L [facility] Anion Gap 9 3 - 14 mmol/L [facility] Glucose 100(H) 70 - 99 mg/dL [facility] Urea Nitrogen 17 7 - 30 mg/dL [facility] Creatinine 0.74 0.52 - 1.04 mg/dL [facility] GFR Estimate 79 >60 mL/min/1. 7m2 [facility] Comment:Non GFR Calc GFR Estimate If Black >90 GFR Calc >60 mL/min/1. 7m2 [facility] Calcium 9.1 8.5 - 10.1 mg/dL [facility] Bilirubin Total 0.4 0.2 - 1.3 mg/dL [facility] Albumin 3.8 3.4 - 5.0 g/dL [facility] Protein Total 7.1 6.8 - 8.8 g/dL [facility] Alkaline Phosphatase 72 40 - 150 U/L [facility] ALT 27 0 - 50 U/L [facility] AST 26 0 - 45 U/L [facility] Blood specimen (specimen) 03/01/2016 10:19 AM PLANNING MANAGER 03/01/2016 10:24 AM PLANNING MANAGER Niesha Negron DO LAB - BLOOD ORDER SNOW [facility] [address] [place] [address] * COLONOSCOPY (07/08/2014 10:44 AM CDT) COLONOSCOPY [facility] Patient Name: Yessy Mullen ?Procedure [...] and ?oxygen saturations were monitored continuously. The ?PCF-H190L [id number] was introduced through the anus ?and advanced [...] malignant neoplasms of colon CPT copyright 2013 [employer]. All rights reserved. The codes documented in this report are preliminary and upon sociology professor review may be revised to meet current compliance requirements. Electronically signed by Deonte High MD __ Deonte High MD 07/08/2014 11:11 AM I was physically present for the entire viewing portion of the exam. Number of Addenda: 0 Note Initiated On: 07/08/2014 10:44 AM MRN: ?[id number] Procedure Date: ? 07/08/2014 10:44:48 AM Scope [...] Other 10/08/2013 Provider Outside IMG MAMMOGRAPHY ORDE SAMANTA from Last 3 Months or Most Recently Relevant to Health Maintenance Care Teams Trademark Affixer Relationship Specialty Start Date End Date No Ref-Primary, Physician PCP - General 07/28/17 Clinic, [address] [address] PCP 08/09/16 Niesha Negron DO [address] [facility] [address] [place] [address] Assigned OBGYN Provider 10/14/23
--- OUTSIDE RECORDS SUMMARY | 2023-12-30 17:34 | XMS_ITS | Encounter Summary ---
Author Organization [place] Address [address] [place] [address] Care Team Providers Care Teacher Dramatics Name Role Phone Terence Lizajennifer Molina DO Primary Care Provider [phone] Shaniqua Nguyễn MD Primary Care Provider [phone] [facility] Unavaila ble [facility] Primary Care Provider No Ref-Primary, Physician Primary Care Provider Ronaldo Trotter MD Unavailable [phone] Niesha Negron DO Unavailable Niesha Negron DO Unavailable Encounter Details Date Type Department Care Team (Late st Contact Info) Description 06/09/2013 [facility] Medical Advice Rheumatology 2nd Floor, Clinic [address] [id number] Ronadlo Trotter MD [address] [place] [address] Social History Tobacco Use Types Packs/Day [...] on filedocumented in this encounter Care Teams Teacher Dramatics Relationship Specialty Start Date End Date Liza Pratt DO PCP - General 02/26/12 06/09/14 [place]iqua Nguy[place] [address] [facility] [place] [address] PCP - General Internal Medicine 06/10/14 02/26/[address] [address] PCP - General 02/27/17 07/27/17 No Ref-Primary, Physician PCP - General 07/28/[address] [address] PCP 08/09/16 Ronaldo Trotter MD [address] [place] [address] Assigned Rheumatology Provider 01/14/20 10/28/20 [place] [address] [place] [address] Assigned OBGYN Provider 01/14/20 Niesha Negron DO [address] [address] Assigned OBGYN Provider 10/14/23 documented as of this encounter
--- OUTSIDE RECORDS SUMMARY | 2023-12-30 17:34 | XMS_ITS | Encounter Summary ---
Author Organization [place] Address [address] [place] [address] Care Team Providers Care Park Landscape Architect Name Role Phone Terence Lizajennifer Molina DO Primary Care Provider [phone] Shaniqua Nguyễn MD Primary Care Provider [phone] [facility] Unavaila ble [facility] Primary Care Provider No Ref-Primary, Physician Primary Care Provider Ronaldo Trotter MD Unavailable Niesha Negron DO Unavailable Niesha Negron DO Unavailable Encounter Details Date Type Department Care Team (Late st Contact Info) Description 02/03/2014 [facility] Medical Advice P Adult Rheumatology 2nd Floor, Clinic [address] [address] Ronaldo Trotter MD [address] [place] [address] Social History Tobacco Use Types Packs/Day [...] /despite that, let's see her back 02/25 WAY TRUCK DRIVER documented in this encounter Plan of Treatment Not on file documented as of this encounter Visit Diagnoses Not on filedocumented in this encounter Care Teams Park Landscape Architect Relationship Specialty Start Date End Date Liza Pratt DO PCP - General 02/26/12 06/09/14 Shaniqua Nguy[place] [address] [place] [address] PCP - General Internal Medicine 06/10/14 02/26/[address] [address] PCP - General 02/27/17 07/27/17 No Ref-Primary, Physician PCP - General 07/28/17 [facility] [address] [place] [address] PCP 08/09/16 Ronaldo Trotter MD [address] [place] [address] Assigned Rheumatology Provider 01/14/20 10/28/20 [place] [address] [place] [address] Assigned OBGYN Provider 01/14/20 [facility]ies[facility] DO [address] [facility] [address] [place] [address] Assigned OBGYN Provider 10/14/23 documented as of this encounter
--- OUTSIDE RECORDS SUMMARY | 2023-12-30 17:34 | XMS_ITS | Clinical Summary ---
Author Organization [place] Address [address] [place] [address] Care Team Providers Care Faculty Dean Name Role Phone Clinic, [facility] Unavaila ble No Ref-Primary, Physician Primary Care Provider Niesha Negron DO Unavailable [phone] Allergies Active Allergy Reactions Criticality Noted Date Comments Erythromycin Nausea and Vomiting 03/12/2012 Contrast Dye Shortness Of Breath High 03/12/2012 Procaine Anxiety,Palpitations ,Difficulty breathing Low 07/05/2014 Sulfa Antibiotics Swelling 03/12/2012 Medications Medication Sig Dispensed Refills Start Date End Date Status Multiple Vitamins-Minerals (MULTI VITAMIN/MINERALS PO)Indications:Chest tightness,Fatigue,Co nnective tissue disease (H) Take 1 tablet by mouth daily. Active [place]wai-3 Fatty Acids (OMEGA-3 FISH OIL PO)Indications:Chest tightness,Fatigue,Co [...] Overview: 06/06/14 NIL pap, +HPV 16 08/11/14 [place]= DEB 1 Pap= NIL. Co-test 12 months 12/25/15: NIL pap, + HR HPV 16. Plan [place]. 04/03/16: BX: normal, ECC: Neg. Plan cotest in 1 year per provider. 05/15/17 NIL pap, + HR HPV type 16. Plan colp due by 08/12/17 06/30/17 [place]- DEB 1 and high grade lesion on [...] AM CDT Pulse 80 04/29/2019 8:26 AM ETL DATABASE DEVELOPER Temperature 36.8 ??C (98.2 ??F) 01/20/2018 2:57 PM CD T Respiratory Rate 17 04/29/2019 8:26 AM ETL DATABASE DEVELOPER Oxygen Saturation 99% 04/29/2019 8:26 AM ETL DATABASE DEVELOPER RA Inhaled Oxygen Concentration - - Weight 59.2 kg (130 lb 8 oz) 09/22/2023 10:55 AM CDT Height 160 cm (5' 3) 03/05/2021 3:17 PM ETL DATABASE DEVELOPER Body Mass Index 23.12 03/05/2021 3:17 PM ETL DATABASE DEVELOPER Plan of Treatment Health Maintenance Due Date Last Done Comments ADVANCE CARE PLANNING 1950 ANNUAL REVIEW OF HM ORDERS 1950 CT COLONOGRAPHY 1950 DEXA 1950 FIT 1950 FLEX SIG 1950 sDNA (Cologuard) 1950 HEPATITIS C SCREENING 1969 MAMMO SCREENING 10/09/2015 10/08/2013, 08/28/2012 FALL RISK ASSESSMENT 02/15/2016 LIPID 03/01/2017 03/01/2016, 06/06/2014 EYE EXAM 12/28/2017 12/28/2016, 11/22, 06/11/2012 TSH W/FREE T4 REFLEX 02/23/2018 02/23/2017, 08/11/2016, 03/01/2016, Additional history exists GLUCOSE 03/01/2019 03/01/2016, 06/06/2014 MEDICARE ANNUAL WELLNESS VISIT 03/05/2022 03/05/2021, 03/06/2020, 12/25/2015, Additional history exists COVID-19 Vaccine ( season) 2023 04/05/2022, 02/20/2021, 05/18/2020, Additional history exists INFLUENZA VACCINE (#1) 2023 , 01/19/2022, 01/08/2021, Additional history exists COLONOSCOPY 07/08/2024 07/08/2014, 07/08/2014 COLORECTAL CANCER SCREENING 07/08/2024 DTAP/TDAP/TD IMMUNIZATION (3 - Td or Tdap) 09/17/2025 09/18/2015, 06/06/2014 RSV VACCINE (1 - 1-dose 75+ series) 2026 HPV FOLLOW-UP 09/21/2026 09/22/2023, 02/21, 03/06/2020, Additional history exists PAP FOLLOW-UP 09/21/2026 09/22/2023, 07/0 03/2023, 03/05/2021, Additional history exists Pneumococcal Vaccine: 65+ Years Completed 02/07/2022, 03/05/2018 ZOSTER IMMUNIZATION Completed 04/26/2023, 05/24/2022, 08/18/2011 PHQ-2 (once per calendar year) Completed 09/22/2023, 03/06/2020, 04/29/2019, Additional history exists HPV IMMUNIZATION Aged Out No longer e [...] test positive TSH Routine 02/23/2017 2:17 PM ETL DATABASE DEVELOPER Acute sinusitis with symptoms > 10 days Fatigue, unspecified type COMPREHENSIVE METABOLIC PANEL Routine 03/01/2016 10:19 AM ETL DATABASE DEVELOPER Routine general medical examination at a [facility] care facility LIPID REFLEX TO DIRECT LDL PANEL Routine 03/01/2016 10:19 AM ETL DATABASE DEVELOPER Routine general medical examination at a [facility] care facility COLONOSCOPY Routine 07/08/2014 10:44 [...] for high risk HPV DNA. METHODOLOGY: The [employer] system uses automated extraction, simultaneous amplification of [...] ORDER SNOW [facility] Specialty Lab [address] [facility] [address], [address] [address], [facility] MOLECULAR DIAGNOSTICS Molecular Diagnostics [address] [facility], [address] [address], [facility] * Gynecologic Cytology (PAP) (09/22/2023 11:47 AM [...] component of this testing was completed at [facility]. Stain controls for all stains resulted within this report have been reviewed and show appropriate reactivity. 09/26/2023 2:27 PM CDT SPECIALTY LABS Brushing ENDOCERVICAL STRUCTURE / Unknown Non-blood Collection / Unknown 09/22/2023 11:47 AM CDT 09/23/2023 8:34 AM CDT Niesha [place] [facility] Specialty Lab [address] [facility] [address], [address] [address] * (ABNORMAL) TSH (02/23/2017 2:17 PM ETL DATABASE DEVELOPER) TSH 0.38(L) 0.40 - 4.00 mU/L 02/24/2017 3:21 PM ETL DATABASE DEVELOPER [facility] Blood specimen (specimen) 02/23/2017 2:17 PM ETL DATABASE DEVELOPER 02/23/2017 2:18 PM ETL DATABASE DEVELOPER Angel Ordaz MD LAB - BLOOD ORDERABL ES [facility] [address] [place] [address] * (ABNORMAL) Lipid Profile with reflex to direct LDL (03/01/2016 10:19 AM ETL DATABASE DEVELOPER) Cholesterol 195 <200 mg/dL [facility] Triglycerides 62 <150 mg/dL [facility] HDL Cholesterol 78 >49 mg/dL [facility] LDL Cholesterol Calculated 105(H) <100 mg/dL [facility] Comment: Above desirable: ??100-129 mg/dl Borderline High: ??130-159 mg/dL High: ? 160-189 mg/dL Very high: ? >189 mg/dl Non HDL Cholesterol 117 <130 mg/dL [facility] Blood specimen (specimen) 03/01/2016 10:19 AM ETL DATABASE DEVELOPER 03/01/2016 10:24 AM ETL DATABASE DEVELOPER Niesha Elle Tillemans DO LAB - BLOOD ORDER SNOW [facility] [address] [place] [address] * (ABNORMAL) Comprehensive metabolic panel (BMP + Alb, Alk Phos, ALT, AST, Total. Bili, TP) (03/01/2016 10:19 AM ETL DATABASE DEVELOPER) Sodium 143 133 - 144 mmol/L [facility] Potassium 4.2 3.4 - 5.3 mmol/L [facility] Chloride 108 94 - 109 mmol/L [facility] Carbon Dioxide 26 20 - 32 mmol/L [facility] Anion Gap 9 3 - 14 mmol/L [facility] Glucose 100(H) 70 - 99 mg/dL [facility] Urea Nitrogen 17 7 - 30 mg/dL [facility] Creatinine 0.74 0.52 - 1.04 mg/dL [facility] GFR Estimate 79 >60 mL/min/1. 7m2 [facility] Comment:Non GFR Calc GFR Estimate If Black >90 GFR Calc >60 mL/min/1. 7m2 [facility] Calcium 9.1 8.5 - 10.1 mg/dL [facility] Bilirubin Total 0.4 0.2 - 1.3 mg/dL [facility] Albumin 3.8 3.4 - 5.0 g/dL [facility] Protein Total 7.1 6.8 - 8.8 g/dL [facility] Alkaline Phosphatase 72 40 - 150 U/L [facility] ALT 27 0 - 50 U/L [facility] AST 26 0 - 45 U/L [facility] Blood specimen (specimen) 03/01/2016 10:19 AM ETL DATABASE DEVELOPER 03/01/2016 10:24 AM ETL DATABASE DEVELOPER Niesha Elle Tillemans DO LAB - BLOOD ORDER SNOW [facility] [address] [place] [address] * COLONOSCOPY (07/08/2014 10:44 AM CDT) COLONOSCOPY [facility] Patient Name: Yessy Mullen ?Procedure [...] ?oxygen saturations were monitored continuously. The ?PCF-H190L [id number] was introduced through the anus ?and advanced [...] malignant neoplasms of colon CPT copyright 2013 [employer]. All rights reserved. The codes documented in this report are preliminary and upon credit product analyst review may be revised to meet current compliance requirements. Electronically signed by Deonte High MD __ Deonte High MD 07/08/2014 11:11 AM I was physically present for the entire viewing portion of the exam. Number of Addenda: 0 Note Initiated On: 07/08/2014 10:44 AM MRN: ?[id number] Procedure Date: ? 07/08/2014 10:44:48 AM Scope [...] Recently Relevant to Health Maintenance Care Teams Faculty Dean Relationship Specialty Start Date End Date No Ref-Primary, Physician PCP - General 07/28/17 [facility], [address] [address] PCP 08/09/16 Niesha Negron DO [address] [address] Assigned OBGYN Provider 10/14/23
--- OUTSIDE RECORDS SUMMARY | 2023-12-30 17:34 | XMS_ITS | Encounter Summary ---
Author Organization [place] Address [address] [place] [address] Care Team Providers Care Basket Assembler Name Role Phone Terence Liza G DO Primary Care Provider [phone] Shaniqua Nguyễn MD Primary Care Provider [phone] [facility] Unavaila ble [facility] Primary Care Provider No Ref-Primary, Physician Primary Care Provider Ronaldo Trotter MD Unavailable Niesha Negron DO Unavailable [phone] Niesha Negron DO Unavailable Encounter Details Date Type Department Care Team (Late st Contact Info) Description 04/02/2013 [facility] Rheumatology 2nd Floor, Clinic [address] [address] Ronaldo Trotter MD [address] [place] [address] Social History Tobacco Use Types Packs/Day [...] on filedocumented in this encounter Care Teams Basket Assembler Relationship Specialty Start Date End Date Liza Pratt DO PCP - General 02/26/12 06/09/14 Shaniqua Nguy[place] [address] [facility] [place] [address] PCP - General Internal Medicine 06/10/14 02/26/[address] [address] PCP - General 02/27/17 07/27/17 No Ref-Primary, Physician PCP - General 07/28/[address] [address] PCP 08/09/16 Ronaldo Trotter MD [address] [place] [address] Assigned Rheumatology Provider 01/14/20 10/28/20 [place] [address] [place] [address] Assigned OBGYN Provider 01/14/20 Niesha Negron DO [address] [address] Assigned OBGYN Provider 10/14/23 documented as of this encounter
--- OUTSIDE RECORDS SUMMARY | 2023-12-30 17:34 | XMS_ITS | Encounter Summary ---
Author Organization [place] Address [address] [place] [address] Care Team Providers Care Scorer Single Name Role Phone Clinic, [facility] Unavaila ble No Ref-Primary, Physician Primary Care Provider Reason for Visit * Reason Comments Clinical Laboratory Technologist Exam Pap due--mammo done in [place] Encounter Details Date Type Department Care Team (Late st Contact Info) Description 09/22/2023 10:30 AM CDT Office Visit [facility] [place] [address] [place] [phone] Niesha Negron, DO [address] [place] [address] Moderate dysplasia of cervix (DEB II) (Primary Dx); Cervical high risk HPV (human papillomavirus) test positive Social History Tobacco Use Types Packs/Day Years [...] on file documented as of this encounter Last Filed Vital Signs Vital Sign Reading Time Taken Comments Blood Pressure 118/70 09/22/2023 10:55 AM CDT Pulse - - Temperature - - Respiratory Rate - - Oxygen Saturation - - Inhaled Oxygen Concentration - - Weight 59.2 kg (130 lb 8 oz) 09/22/2023 10:55 AM CDT Height - - Body Mass Index 23.12 03/05/2021 3:17 PM BLOCK CHOPPER HAND documented in this encounter Patient Instructions * Patient Instructions* Niesha Negron DO - 09/22/2023 10:30 AM CDT Yearly exams Dr. Niesha Negron DO Obstetrics and Gynecology [facility] documented in this encounter Progress Notes * Niesha Negron DO - 09/22/2023 10:30 AM CDT SUBJECTIVE: Yessy Mullen is an 73 year old postmenopausal woman who presents for annual captain assistant exam for pap smear. Menopause at age 42. No bleeding, spotting, or discharge noted. Estrogen replacement therapy: never SHARON exposure: no History of abnormal Pap smear: Yes: 06/06/14 NIL pap, +HPV 16 08/11/14 Dewar= DEB 1 Pap= NIL. Co-test 12 months 12/25/15: NIL pap, + HR HPV 16. Plan [place]. 04/03/16: BX: normal, ECC: Neg. Plan cotest in 1 year per provider. 05/15/17 NIL pap, + HR HPV type 16. Plan colp due by 08/12/17 06/30/17 [place]- DEB 1 and high grade lesion on ECC. Plan LEEP 09/18/17 LEEP - DEB 1 and 2. Plan repeat pap at 6 and 12 months 04/13/18 NIL pap, Negative HPV. Plan repeat pap at 6 months Family history of uterine or ovarian cancer: unknown, maternal aunt uterine Regular self breast exam: Yes History of abnormal mammogram: No Family history of breast cancer: unknown History of abnormal lipids: No Past Medical History: Diagnosis Date Connective tissue disease (H24) 1984 Plaquenil , periodic prednisone High risk HPV infection 06/06/14, 12/25/15, 05/15/17 NIL pap, +HPV 16, plan colp per guidelines Hx of colposcopy with cervical biopsy 04/03/16 04/03/16: BX: normal, ECC: Neg. Hypothyroid 1983 thyroid replacement Sjogren's disease (H24) 2012 Family History Problem Relation Age of Onset Diabetes Maternal Uncle Diabetes Maternal Uncle Hypertension Maternal Uncle Hyperlipidemia Maternal Uncle Past Surgical History: Procedure Laterality Date APPENDECTOMY COLONOSCOPY N/A 07/08/2014 Procedure: COLONOSCOPY; Surgeon: Deonte High MD; Location: GI ECTOPIC SURGERY 1978 TONSILLECTOMY & ADENOIDECTOMY [facility] LAP OVARIAN CYSTOTOMY [facility] NONSPECIFIC PROCEDURE 1984 thoracic outlet surgery x2 at [facility] [place] Current Outpatient Medications Medication Sig Dispense Refill CALCIUM CITRATE PO cyclobenzaprine (FLEXERIL) 10 MG tablet Take 0.5 tablets by mouth 3 times daily as needed. hydroxychloroquine (PLAQUENIL) 200 MG tablet TAKE 1 TABLET BY MOUTH DAILY. TAKE 2 TABLETS ON FRIDAY, FRIDAY, AND FRIDAY (Patient taking differently: Takes one and a half tablets daily) 150 tablet 1 levothyroxine (SYNTHROID) 100 MCG tablet Take 1 tablet (100 mcg) by mouth daily Pt needs a lab donenow. Please inform the pt 30 tablet 0 Multiple Vitamins-Minerals (MULTI VITAMIN/MINERALS PO) Take 1 tablet by mouth daily. Naproxen Sodium (ALEVE PO) Take by mouth At Bedtime [place]-3 Fatty Acids (OMEGA-3 FISH OIL PO) Take 1 tablet by mouth daily 1200 daily rosuvastatin (CRESTOR) 10 MG tablet Take 10 mg by mouth No current facility-administered medications for this visit. Allergies Allergen Reactions Ivp Dye [Contrast Dye] Shortness Of Breath Erythromycin Nausea and Vomiting Sulfa Antibiotics Swelling Novocain [Procaine] Anxiety, Palpitations and Difficulty breathing Social History Tobacco Use Smoking status: Never Smokeless tobacco: Never Substance Use Topics Alcohol use: Yes Comment: socially wine Review Of Systems Ears/Nose/Throat: negative Respiratory: No shortness of breath, dyspnea on exertion, cough, or hemoptysis Cardiovascular: negative Gastrointestinal: negative Genitourinary: See HPI Constitutional, HEENT, cardiovascular, pulmonary, GI, , musculoskeletal, neuro, skin, endocrine and psych systems are negative, except as otherwise noted. OBJECTIVE: BP 118/70 Wt 59.2 kg (130 lb 8 oz) BMI 23.12 kg/m?? General appearance: healthy, alert and no distress Skin: Skin color, texture, turgor normal. No rashes or lesions. Ears: negative Nose/Sinuses: Nares normal. Septum midline. Mucosa normal. No drainage or sinus tenderness. Oropharynx: Lips, mucosa, and tongue normal. Teeth and gums normal. Neck: Neck supple. No adenopathy. Thyroid symmetric, normal size,, Carotids without bruits. Lungs: negative, Percussion normal. Good diaphragmatic excursion. Lungs clear Heart: negative, PMI normal. No lifts, heaves, or thrills. RRR. No murmurs, clicks gallops or rub Breasts: Inspection negative. No nipple discharge or bleeding. No masses. Abdomen: Abdomen soft, non-tender. BS normal. No masses, organomegaly Pelvic: Pelvic examination with pap/no Gonorrhea and Chlamydia including External genitalia normal and vagina normal rugatted slightly atrophic Examination of urethra normal no masses, tenderness, scarring bladder, no masses or tenderness Cervix no lesions or discharge Bimanual exam with Uterus 6 weeks size, mid position, mobile,no-tenderness, normal no descent Adnexa/parametria normal no masses ASSESSMENT: Yessy Mullen is an 73 year old postmenopausal woman who presents for annual captain assistant exam for pap smear. Menopause at age 42. No bleeding, spotting, or discharge noted. PLAN: Dx: 1) Pap smear due, mammogram done in [place], Colonoscopy 2) Lipids at appropriate intervals 3) Menopause: no concerns 4) Back issues: pars defect, degenerating discs with stenosis, thinking of decompression surgery, Terrible pain around through the groin, which responds to 36 minutes spent on the date of the encounter doing chart review, patient visit, and documentation Dr. Niesha Negron DO Obstetrics and Gynecology [facility] documented in this encounter Nursing Notes * Alejandrina Granados, NURSE INTERN - 09/22/2023 10:30 AM CDT Chief Complaint Patient presents with Clinical Laboratory Technologist Exam Pap due--mammo done in [place] Initial BP 118/70 Wt 59.2 kg (130 lb 8 oz) BMI 23.12 kg/m?? Estimated body mass index is 23.12 kg/m?? as calculated from the following: Height as of 03/05/21: 1.6 m (5' 3). Weight as of this encounter: 59.2 kg (130 lb 8 oz). BP completed using cuff size: regular Questioned patient about current smoking habits. Pt. has never smoked. The following Due: pap smear documented in this encounter Plan of Treatment Not on file documented as of this encounter Procedures Procedure Name Priority Date/Time Associated Diagnosis Comments HPV AND GYNECOLOGIC CYTOLOGY PANEL Routine 09/22/2023 11:47 AM CDT Moderate dysplasia of cervix (DEB II) Cervical high risk HPV (human papillomavirus) test positive GYNECOLOGIC CYTOLOGY Routine 09/22/2023 11:47 AM CDT Moderate dysplasia of cervix (DEB II) Cervical high risk HPV (human papillomavirus) test positive documented in this encounter Results * Pap Diagnostic with HPV (09/22/2023 11:47 AM CDT) Human Papilloma Virus 16 DNA Negative Negative 09/23/2023 1:24 PM CDT [facility] Human Papilloma Virus 18 DNA Negative Negative 09/23/2023 1:24 PM CDT [facility] Human Papilloma Virus Other Negative Negative 09/23/2023 1:24 PM CDT [facility] FINAL DIAGNOSIS This patient's sample is negative for high risk HPV DNA. METHODOLOGY: The STORYS[employer]JP system uses automated extraction, simultaneous amplification of [...] ORDER [facility] Specialty Lab [address] [facility] [address], [address] [place] [address], [facility] Molecular Diagnostics [address], Room [address] [place] [phone], [facility] * Gynecologic Cytology (PAP) (09/22/2023 11:47 [...] component of this testing was completed at [facility]. Stain controls for all stains resulted within this report have been reviewed and show appropriate reactivity. 09/26/2023 2:27 PM CDT [facility] Brushing ENDOCERVICAL STRUCTURE / Unknown Non-blood Collection / Unknown 09/22/2023 11:47 AM CDT 09/23/2023 8:34 AM CDT Niesha [facility] [address] [facility], Room [address] [phone] documented in this encounter Visit Diagnoses Diagnosis Moderate dysplasia of cervix (DEB II)- Primary Moderate dysplasia of cervix Cervical high risk HPV (human papillomavirus) test positive Cervical high risk human papillomavirus (HPV) DNA test positive documented in this encounter Care Teams Scorer Single Relationship Specialty Start Date End Date No Ref-Primary, Physician PCP - General 07/28/17 Clinic, [address] [address] PCP 08/09/16 documented as of this encounter
--- OUTSIDE RECORDS SUMMARY | 2023-12-30 17:34 | XMS_ITS | Encounter Summary ---
Author Organization [place] Address [address] [place] [address] Care Team Providers Care Catering Coordinator Name Role Phone Clinic, [facility] Unavaila ble No Ref-Primary, Physician Primary Care Provider Ronaldo Trotter MD Unavailable Niesha Negron DO Unavailable Niesha Negron DO Unavailable Encounter Details Date Type Department Care Team (Late st Contact Info) Description 04/17/2019 [facility] Rheumatology Clinic [address] [address] Ronaldo Trotter MD [address] [place] [address] Social History Tobacco Use Types Packs/Day [...] decide if she needs any specific labs. RACT CHECKER documented in this encounter Plan of Treatment Not on file documented as of this encounter Visit Diagnoses Not on filedocumented in this encounter Care Teams Catering Coordinator Relationship Specialty Start Date End Date No Ref-Primary, Physician PCP - General 07/28/[address] [address] PCP 08/09/16 Ronaldo Trotter MD [address] [place] [address] Assigned Rheumatology Provider 01/14/20 10/28/20 [place] [address] [place] [address] Assigned OBGYN Provider 01/14/20 Niesha Negron DO [address] [address] Assigned OBGYN Provider 10/14/23 documented as of this encounter
--- OUTSIDE RECORDS SUMMARY | 2023-12-30 17:34 | XMS_ITS | Encounter Summary ---
Author Organization [place] Address [address] [place] [address] Care Team Providers Care Ip Architect Name Role Phone Shaniqua Nguyễn MD Primary Care Provider [phone] [facility] Primary Care Provider No Ref-Primary, Physician Primary Care Provider Ronaldo Trotter MD Unavailable [phone] Niesha Negron DO Unavailable Niesha Negron DO Unavailable [phone] Encounter Details Date Type Department Care Team (Late st Contact Info) Description 04/08/2016 [facility] [address] [place] [address] Bonita Case, WHIP OPERATOR SENIOUR INSIGHT MANAGER [address] [place] [address] [address] [place] [address] Social History Tobacco Use Types Packs/Day Years [...] on filedocumented in this encounter Care Teams Ip Architect Relationship Specialty Start Date End Date Shaniqua Nguy[place] [address] [place] [address] PCP - General Internal Medicine 06/10/14 02/26/[address] [address] PCP - General 02/27/17 07/27/17 No Ref-Primary, Physician PCP - General 07/28/[address] [address] PCP 08/09/16 Ronaldo Trotter MD [address] [place] [address] Assigned Rheumatology Provider 01/14/20 10/28/20 [place] [address] [place] [address] Assigned OBGYN Provider 01/14/20 Niesha Negron DO [address] [address] Assigned OBGYN Provider 10/14/23 documented as of this encounter
--- OUTSIDE RECORDS SUMMARY | 2023-12-30 17:34 | XMS_ITS | Encounter Summary ---
Author Organization [place] Address [address] [place] [address] Care Team Providers Care Manager Support Services Name Role Phone Terence Lizajennifer Molina DO Primary Care Provider [phone] Shaniqua Nguyễn MD Primary Care Provider [phone] Count Includes [facility] Unavaila ble Count Includes [facility] Primary Care Provider No Ref-Primary, Physician Primary Care Provider Ronaldo Trotter MD Unavailable Niesha Negron DO Unavailable Niesha Negron DO Unavailable [phone] Encounter Details Date Type Department Care Team (Late st Contact Info) Description 08/05/2013 [facility] Medical Advice P Adult Rheumatology 2nd Floor, Clinic [address]A [address] [address] Ronaldo Trotter MD [address] [place] [address] Social History Tobacco Use Types Packs/Day [...] Telephone Encounter - Ronaldo Trotter MD - 08/09/2013 8:30 PM CDT Alejandro Krishnamurthy. documented in this encounter Plan of Treatment Not on file documented as of this encounter Visit Diagnoses Not on filedocumented in this encounter Care Teams Manager Support Services Relationship Specialty Start Date End Date Liza Pratt DO PCP - General 02/26/12 06/09/14 Shaniqua Nguy[place] [address] [place] [address] PCP - General Internal Medicine 06/10/14 02/26/[address] [address] PCP - General 02/27/17 07/27/17 No Ref-Primary, Physician PCP - General 07/28/[address] [address] PCP 08/09/16 Ronaldo Trotter MD [address] [place] [address] Assigned Rheumatology Provider 01/14/20 10/28/20 [place] [address] [place], [place] [id number] Assigned OBGYN Provider 01/14/20 Niesha Negron DO [address] [address] Assigned OBGYN Provider 10/14/23 documented as of this encounter
--- OUTSIDE RECORDS SUMMARY | 2023-12-30 17:34 | XMS_ITS | Encounter Summary ---
Author Organization [place] Address [address] [place] [address] Care Team Providers Care Nurse First Aid Name Role Phone [facility], [facility] Unavaila ble Clinic, [facility] Primary Care Provider No Ref-Primary, Physician Primary Care Provider Ronaldo Trotter MD Unavailable Niesha Negron DO Unavailable [phone] Niesha Negron DO Unavailable Encounter Details Date Type Department Care Team (Late st Contact Info) Description 03/24/2017 [facility] [address] [place] [address] [facility] Social History Tobacco Use Types Packs/Day Years [...] on filedocumented in this encounter Care Teams Nurse First Aid Relationship Specialty Start Date End Date [facility], [facility] [address] [place] [address] PCP - General 02/27/17 07/27/17 No Ref-Primary, Physician PCP - General 07/28/17 [facility], [facility] [address] [place] [address] PCP 08/09/16 Ronaldo Trotter MD [address] [place] [address] Assigned Rheumatology Provider 01/14/20 10/28/20 [place] [address], [place] [id number] Assigned OBGYN Provider 01/14/20 Niesha Negron DO [address] [address] Assigned OBGYN Provider 10/14/23 documented as of this encounter
--- OUTSIDE RECORDS SUMMARY | 2023-12-30 17:34 | XMS_ITS | Encounter Summary ---
Author Organization [place] Address [address] [place] [address]. [place] [address] Care Team Providers Care Sustainable Communities Designer Name Role Phone Shaniqua Nguyễn MD Primary Care Provider [phone] [facility] Unavaila ble [facility] Primary Care Provider No Ref-Primary, Physician Primary Care Provider Ronaldo Trotter MD Unavailable Niesha Negron DO Unavailable [phone] Niesha Negron DO Unavailable [phone] Reason for Visit * Reason Onset Date Comments Abstract 07/13/2016 Mammogram Encounter Details Date Type Department Care Team (Late st Contact Info) Description 07/13/2016 Telephone [facility] [address] [place] [address] Shaniqua Nguy[place] [address] [place] [address] Abstract (Mammogram) Social History Tobacco Use Types [...] this date: 01/2016 (approximately), by this group: [facility], resultswere normal. Outreach Admissions Manager, Sylviashabana Teran documented in this encounter Plan of Treatment Not on file documented as of this encounter Visit Diagnoses Not on filedocumented in this encounter Care Teams Sustainable Communities Designer Relationship Specialty Start Date End Date Shaniqua Nguy[place] [address] [place] [address] PCP - General Internal Medicine 06/10/14 02/26/[address] [address] PCP - General 02/27/17 07/27/17 No Ref-Primary, Physician PCP - General 07/28/[address] [address] PCP 08/09/16 Ronaldo Trotter MD [address] [place] [address] Assigned Rheumatology Provider 01/14/20 10/28/20 [place] [address] [place] [address] Assigned OBGYN Provider 01/14/20 Niesha Negron DO [address] [address] Assigned OBGYN Provider 10/14/23 documented as of this encounter
--- OUTSIDE RECORDS SUMMARY | 2023-12-30 17:35 | XMS_ITS | Clinical Summary ---
Author Organization [facility] Address [place], [place] [address] Care Team Providers Care Cash Teller Name Role Phone Guillermo Rossi MD Primary Care Provider Allergies Active Allergy Reactions Criticality Noted Date Comments Diatrizoate Allergen Shortness Of Breath High 03/12/2012 IVP dye reaction in approximately 1989. Tolerated Isovue [address] (ioxehol) with no reaction. ??(consider premedicating) Tolerated Prohance, gadolinium based dye in 08/2011 MRI. Erythromycin Nausea And Vomiting 03/12/2012 z-pack Procaine Shortness Of Breath,Anxiety,Pal pitations Low 07/05/2014 Possibly due to epinephrine or preservative. Patient tolerated preservative free 1% lidocaine in glass vials in 06/2016. Sulfa (Sulfonamide Antibiotics) Edema 03/12/2012 Sulfasalazine Edema 03/12/2012 Medications Medication Sig Dispensed [...] per actuation) nasal solution (FLONASE) Inhale 1 Lena into both nostrils once daily if needed. [...] mg by mouth once daily. 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 05/28/2012 Encounters Date Type Department Care Team Description 12/12/2023 Telephone [facility] [address] [place] [address] Raymond Stahl DO Screening (Injection Prescreening-RFA) 12/09/2023 Telephone [facility] [address] [facility] [address] [place] [address] Raymond Stahl DO Injection (Medication) 11/28/2023 Telephone [facility] [address] [place] [address] Raymond Stahl DO 11/27/2023 12:06 PM CDT - 11/27/2023 11:59 PM CDT Hospital Encounter [facility] [address] [place] [address] [address] [place] [address] Khanh Carter MD Lumbar facet arthropathy; Degenerative scoliosis in adult patient 11/21/2023 Telephone [facility] [address] [place] [address] Raymond Stahl DO Results (MBB #1 Pain Diary) 11/20/2023 12:08 PM CDT - 11/20/2023 11:59 PM CDT Hospital Encounter [facility] [address] [place] [address] [address] [place] [address] Khanh Carter MD Degenerative scoliosis in adult patient; Lumbar facet arthropathy 11/20/2023 Travel 11/04/2023 Telephone [facility] [address] [facility] [address] [place] [address] Raymond Stahl DO Screening (Injection prescreening) 10/29/2023 Telephone [facility] [address] [facility] [place] [address] Khanh Carter MD Questions 10/24/2023 11:00 AM CDT Ancillary Procedure [facility] [address] [facility] [place] [address] 10/24/2023 10:00 AM CDT Office Visit [facility] [address] [place] [address] Khanh Carter MD Musculoskeletal Problem (Follow up L4-5 ILESI on 09/12/23/) 10/24/2023 Travel from Last 3 Months Immunizations Name Administration [...] Sign Reading Time Taken Comments Blood Pressure 156/77 10/24/2023 10:01 AM CDT Pulse 78 10/24/2023 10:01 AM CDT Temperature 36.7 ??C (98 ??F) 10/24/2023 10:01 AM CDT Respiratory Rate 14 01/14/2020 11:58 AM CDT Oxygen Saturation 100% 10/24/2023 10:01 AM CDT Inhaled Oxygen Concentration - - Weight 56.7 kg (125 lb) 08/07/2020 9:44 AM CDT Height 162.6 cm (5' 4) 11/26/2019 11:15 PM CDT Body Mass Index 21.46 11/26/2019 11:15 PM CDT Plan of Treatment Upcoming Encounters Date Type Department Care Team (Latest Contact Info) Description 01/09/2024 10:30 AM CDT Appointment [facility] [address] [place] [address] 04/14/2024 Cardiac Device Check [facility] [phone] Health Maintenance Due Date Last Done Comments [...] 1 - PCV) 02/15/2016 COVID-19 vaccine series (5 - season) 2023 04/05/2022, 02/20/2021, 05/18/2020, Additional history exists Influenza for age 65+ 11/23/2023 01/29/2008 Procedures Procedure Name Priority Date/Time Associated Diagnosis Comments XR INJ MEDIAL BRANCH BLOCK LUMBAR 2 LEVEL RT Routine 11/27/2023 12:36 PM CDT Lumbar facet arthropathy Degenerative scoliosis in adult patient XR INJ MEDIAL BRANCH BLOCK LUMBAR 2 LEVEL RT Routine 11/20/2023 12:50 PM CDT Degenerative scoliosis in adult patient Lumbar facet arthropathy XR PELVIS 1 VIEW Routine 10/24/2023 10:5 5 AM CDT Hip pain, right from Last 3 Months Results * XR INJ MEDIAL BRANCH BLOCK LUMBAR 2 LEVEL RT (11/27/2023 12:36 PM CDT) Only the most recent of2 resultswithin the time period is included. Anatomical Region Laterality Modality LUMBAR SPINE X-Ray Angiograph y Narrative 11/27/2023 4:07 PM CDT Preoperative diagnosis: Facet mediated low back pain. Postoperative diagnosis: ??Same. Procedure: Fluoroscopically guided, contrast controlled right L3, L4 and L5 medial branch blocks (L4-S1 vertebral levels). Surgeon: Raymond Stahl D.O. Complications: None. Estimated blood loss: Less than 1 ml. Anesthesia: Local. Indications: Chronic axial low back pain which interferes with the patient's activities of daily living. ??MRI evidence of lumbar facet joint arthropathy. Preprocedure pain score: 6/10 Postprocedure pain score: 3/10 Following denial of allergy and review of potential side effects and complications including but not necessarily limited to infection, allergic reaction, local tissue breakdown, nerve injury, paresis, seizure, epidural hematoma, syncope, headache, respiratory or cardiac arrest, and scar formation the patient indicated they understood and agreed to proceed. Written informed consent was obtained and all of the patient??s questions were answered. Procedure: In the prone position, following sterile prep and drape of the lumbar region, the right L4, L5, and S1 SAP/TVP junctions were imaged fluoroscopically via a right oblique view with caudal tilt. ??The skin over the target areas was anesthetized using 25-gauge 1??? needles with 1 ml of 1% Lidocaine per site. 22-gauge 3??? spinal needles were then atraumatically introduced and advanced under fluoroscopic guidance to a point just inferior and medial to the SAP/TVP junction at each level. ?? Following negative aspiration, injection of approximately 0.5 ml of Clariscan (5 mmol/ml) contrast confirmed appropriate regional flow for medial branch blockade without vascular or intrathecal uptake. ?? Radiographs were obtained for documentation purposes. ??1 ml of 0.5% bupivacaine was then injected at each site without complication and the needles were removed. The patient was observed following the procedure and met the discharge criteria before being discharged from the facility. ??The patient was instructed to follow up per the protocol for their procedure. Khanh Carter MD FLUOROSCOPY * XR PELVIS 1 VIEW (10/24/2023 10:55 AM CDT) Anatomical Region Laterality Modality Pelvis Computed Radiogr aphy 10/24/2023 2:47 PM CDT Narrative 10/24/2023 2:47 PM CDT For Patients: ??As a result of the Century Cures Act, medical imaging exams and procedure reports are released immediately into your electronic medical record. ??You may view this report before your referring provider. ??If you have questions, please contact your health care provider. Indication: Right hip pain Technique: AP pelvis Comparison: None Findings: Degenerative changes L5-S1. No fracture. Mild spurring in both hip joints. Impression: Mild degenerative joint disease right hip. Dictated by Greg Bartholomew MD @ 10/24/2023 2:47:07 PM (Electronically Signed) Procedure Note Greg Bartholomew MD - 10/24/2023 For Patients: As a result of the Cures Act, medical imagingexams and procedure reports are released immediately into your electronicmedical record. You may view this report before your referring provider.If you have questions, please contact your health care provider. Indication: Right hip pain Technique: AP pelvis Comparison: None Findings: Degenerative changes L5-S1. No fracture. Mild spurring in both hip joints. Impression: Mild degenerative joint disease right hip. Dictated by Greg Bartholomew MD @ 10/24/2023 2:47:07 PM (Electronically Signed) Khanh Carter MD GENERAL IMAGING from Last 3 Months Advance Directives * Full Code (Latest Code Status on File) Date Activated Date Inactivated Comments 11/26/2019 11:27 PM 11/28/2019 5:07 PM Question Answer Comments Code Status Discussion: Discussed Care Teams Cash Teller Relationship Specialty Start Date End Date Guillermo Rossi MD [address] [place] [address] PCP - General Internal Medicine 06/13/16
--- OUTSIDE RECORDS SUMMARY | 2023-12-30 17:35 | XMS_ITS | Continuity of Care Document ---
Author Organization [facility] Address [address] [place] [address] Phone Care Team Providers Care Cnc Machine Setter Name Role Phone Giancarlo Block Unavailable Unavailable [...] 3 days. Increase to TID. - Active PLAQUENIL (unknown strength) Not Available - Active CYCLOBENZAPRINE HCL (unknown strength) Not Available - Active MULTIVITAMINS (unknown strength) Not Available - Active OMEGA-3 (unknown strength) Not Available - Active SYNTHROID (unknown strength) Not Available - Active VITAMIN D3 (unknown strength) Not Available - Active Procedures Procedure Date Office/Outpatient Visit,[facility] 2018 Advance Directives Directive Yes / No Effective Date File Name No Information Encounters Encounter Description Practice Location Reason(s) For Visit Diagnoses Date Provider Providers Copied on Encounter [facility], [address], [place], [id number], [place] tel:[phone] [facility] No Information [address] [facility], [address], [place], [id number] , [place]. tel:[phone] Office/Outpat ient Visit,[facility], [facility], [address], [place], [place], [id number], [place] tel:[phone] [facility] [place] Spinal stenosis, cervical region 9 Brian Mondragon. [facility], [address], [place], [place], [id number] , [place]. tel:[phone] Referring Provider: [facility] [address], [address]. tel:[phone] Family History Family Member Type Diagnosis Age At Onset No Information Payers Payer name Insurance type Covered democrat ID Milo mckinley(s) [facility] [id number] Medicare [facility] [id number] Social History Type Description Quantity Date [...]
--- NOTE | 2023-12-30 17:40 | CRLHL7_ITS ---
For Patients: As a result of the Century Cures Act, medical imaging exams and procedure reports are released immediately into your electronic medical record. You may view this report before your referring provider. If you have questions, please contact your health care provider. BILATERAL SCREENING MAMMOGRAM WITH COMPUTER-AIDED DETECTION AND TOMOSYNTHESIS TECHNIQUE: CC and MLO views were obtained. These mammographic images have been obtained using full-field digital technique. These mammographic images were interpreted with the benefit of computer-aided detection. Breast Tomosynthesis was used in this interpretation. COMPARISON FILM: 10/08/22, 08/31/21, 07/28/20. FINDINGS: There are scattered areas of fibroglandular density. IMPRESSION: There is no radiographic evidence for malignancy. ASSESSMENT: BI-RADS Category 1: Negative RECOMMENDATION: Routine screening mammogram in 1 year. A lay language report of this examination will be provided to the patient. Greg Bartholomew M.D. Diagnostic Radiologist [email or web address] SP/Dictated by: Greg Bartholomew MD @ 12/31/2023 11:39:00 AM (Electronically Signed)
== END 2023-12-30 17:32 | disposition home or self-care (01) ==
LOC: MAMMO 17:32
PROVIDERS: PCP Internal Medicine; Visit Provider Internal Medicine
DX: Z12.31 Encounter for screening mammogram for malignant neoplasm of breast (principal)
CPT/HCPCS: 77063; 77067

== ENCOUNTER 2024-04-27 11:12 | Outpatient (CLI) | payer MEDICARE, BC, SELFPAY | END 2024-04-27 11:13 | disposition home or self-care (01) | PROVIDERS: PCP Internal Medicine; Referring Provider Internal Medicine; Visit Provider Internal Medicine | DX: E78.5 Hyperlipidemia, unspecified (principal); E03.9 Hypothyroidism, unspecified; M32.9 Systemic lupus erythematosus, unspecified; J32.9 Chronic sinusitis, unspecified; Z13.9 Encounter for screening, unspecified | CPT/HCPCS: 80053; 80061; 84439; 84443 ==

== ENCOUNTER 2024-07-13 10:45 | Outpatient (CLI) | payer MEDICARE, BC, SELFPAY ==
--- NOTE | 2024-07-13 12:05 | P.ANES_ITS ---
Anesthesia Charges Start Date/Time Anesthesia Start Date: 07/13/24 Anesthesia Start Time: 11:34 Stop Date/Time Anesthesia Stop Date: 07/13/24 Anesthesia Stop Time: 12:03 Summary Extremes of Age - Over 70 or under 1: MDA Coding CPT Codes CPT Codes: ANES LWR INTST NDSC NOS - 40023 ([id number]) P3 - PATIENT W/SEVERE SYS DISEASE, QK - POLISHER SAND 2-4 CNCRNT ANES PROC, QX - HORTICULTURE PROFESSOR SVC W/ MD MED DIRECTION Additional Codes: Summary - Extremes of Age - Over 70 or under 1: MDA ([id number])
--- NOTE | 2024-07-13 12:05 | P.ANES_ITS ---
Anesthesia Charges Start Date/Time Anesthesia Start Date: 07/13/24 Anesthesia Start Time: 11:34 Stop Date/Time Anesthesia Stop Date: 07/13/24 Anesthesia Stop Time: 12:03 Summary Extremes of Age - Over 70 or under 1: ASSISTANT SPA MANAGER Coding CPT Codes CPT Codes: ANES LWR INTST NDSC NOS - 96586 ([id number]) P3 - PATIENT W/SEVERE SYS DISEASE, QK - PULLEY MAN 2-4 CNCRNT ANES PROC, QX - ASSISTANT SPA MANAGER SVC W/ MD MED DIRECTION Additional Codes: Summary - Extremes of Age - Over 70 or under 1: ASSISTANT SPA MANAGER ([id number])
--- NOTE | 2024-07-13 12:05 | W.ANESCHARGE ---
Anesthesia Charges Start Date/Time Anesthesia Start Date: 07/13/24 Anesthesia Start Time: 11:34 Stop Date/Time Anesthesia Stop Date: 07/13/24 Anesthesia Stop Time: 12:03 Summary Extremes of Age - Over 70 or under 1: MDA Coding CPT Codes CPT Codes: ANES LWR INTST NDSC NOS - 92702 ([id number]) P3 - PATIENT W/SEVERE SYS DISEASE, QK - CASE BRIEFER 2-4 CNCRNT ANES PROC, QX - HEALTH ADVOCATE SVC W/ MD MED DIRECTION Additional Codes: Summary - Extremes of Age - Over 70 or under 1: MDA ([id number])
--- NOTE | 2024-07-13 12:05 | W.ANESCHARGE ---
Anesthesia Charges Start Date/Time Anesthesia Start Date: 07/13/24 Anesthesia Start Time: 11:34 Stop Date/Time Anesthesia Stop Date: 07/13/24 Anesthesia Stop Time: 12:03 Summary Extremes of Age - Over 70 or under 1: CARD WRITER HAND Coding CPT Codes CPT Codes: ANES LWR INTST NDSC NOS - 74459 ([id number]) P3 - PATIENT W/SEVERE SYS DISEASE, QK - GAS SUBSTATION OPERATOR 2-4 CNCRNT ANES PROC, QX - CARD WRITER HAND SVC W/ MD MED DIRECTION Additional Codes: Summary - Extremes of Age - Over 70 or under 1: CARD WRITER HAND ([id number])
== END 2024-07-13 10:46 | disposition home or self-care (01) ==
LOC: OP CLINIC 10:45
PROVIDERS: PCP Internal Medicine; Visit Provider Surgery
DX: Z12.11 Encounter for screening for malignant neoplasm of colon (principal); D12.4 Benign neoplasm of descending colon; K57.30 Diverticulosis of large intestine without perforation or abscess without bleeding
CPT/HCPCS: 00811; 45385; 88305; 99100; J2704

== ENCOUNTER 2024-10-15 09:30 | Outpatient (CLI) | payer MEDICARE, BC, SELFPAY | END 2024-10-15 09:31 | disposition home or self-care (01) | LOC: INJ CL 09:32 | PROVIDERS: PCP Internal Medicine; Visit Provider Family Medicine | DX: M54.16 Radiculopathy, lumbar region (principal); M51.369 Other intervertebral disc degeneration, lumbar region without mention of lumbar back pain or lower extremity pain | CPT/HCPCS: 62323; J0702 ==